=== PATIENT | female | born 1935 | race Caucasian/White ===

== ENCOUNTER 2016-12-03 12:48 | Outpatient (RCR) | payer MEDICARE ==
--- OUTSIDE RECORDS SUMMARY | 2016-11-26 12:51 | XMS REPORT | Continuity of Care Document ---
Author Author [facility] Organization [facility] Address Unknown Phone Unavailable Care Team Providers Care Insulation Hoseman Name Role Phone AppiahMartha reardon PCP [phone] Source Comments Some departments are not documenting in the electronic medical record. If you do not see the information that you expected, contact Release of Information in the Health Information Management department at [phone] for further assistance in locating additional records.[facility] Active Allergies and Adverse Reactions Allergen Noted Date Severity Reactions Comments Chocolate 02/02/2013 SEE COMMENTS Loses voice Sulfa (Sulfonamide 02/27/2013 ITCHING Antibiotics) Current Medications Prescription Sig. Disp. Refills Start End Date Status Date levothyroxine (SYNTHROID) Take 100 mcg by mouth Active 100 mcg tablet daily. aspirin EC 81 mg tablet Take 81 mg by mouth Active daily. losartan (COZAAR) 50 mg Take 50 mg by mouth Active tablet daily. loratadine (CLARITIN) 10 Take 10 mg by mouth daily Active mg tablet as needed. omeprazole DR(+) Take 20 mg by mouth daily Active (PRILOSEC) 20 mg capsule as needed. HYDROcodone/acetaminophen Take 1-2 Tabs by mouth 30 Tab 0 03/06/20 Active (NORCO; VICODIN) 5-325 mg every 6 hours as needed 13 tablet for Pain. senna/docusate Take 1 Tab by mouth twice 30 Tab 0 03/06/20 Active (SENOKOT-S) 8.6/50 mg daily. 13 tablet clotrimazole-betamethason Apply BID for 12 days 1 Container 1 Active e (LOTRISONE) 1-0.05 % 13 topical cream Ostomy Supplies Misc Use as directed and PRN 100 Each 5 03/29/20 Active 13 NAPROXEN SODIUM (ALEVE Take by mouth as Needed. Active PO) cholestyramine-sucrose Take 1 Scoop by mouth as Active (QUESTRAN) 4 gram powd Needed. powder FERROUS SULFATE PO Take by mouth daily. Active cholecalciferol (VITAMIN Take 1,000 Units by mouth Active D) 1,000 units tablet daily. Active Problems Problem Noted Date Rectal cancer (HCC) 02/27/2013 Social History Tobacco Use Types Packs/Day Years Used Date Never Smoker Smokeless Tobacco: Never Used Alcohol Use Drinks/Week oz/Week Comments No Last Filed Vital Signs Vital Sign Reading Time Taken Blood Pressure 176/88 08/20/2016 10:34 AM CDT Pulse 86 08/20/2016 10:34 AM CDT Temperature 36.7 C (98 F) 08/20/2016 10:34 AM CDT Respiratory Rate 18 08/20/2016 10:34 AM CDT Height 1.676 m (5' 5.98") 08/20/2016 10:34 AM CDT Weight 86.456 kg (190 lb 9.6 oz) 08/20/2016 10:34 AM CDT Body Mass Index 30.78 08/20/2016 10:34 AM CDT Oxygen Saturation 100% 08/20/2016 10:34 AM CDT Plan of Care Date Type Specialty Providers Description 02/11/2017 Appointment Oncology David Mccall DO [address] [place] [address] [phone] (Fax) Health Maintenance Due Date Last Done Comments Physical (Comprehensive) 1942 Exam Pertussis Vaccine 1944 Tetanus Vaccine 1950 Shingles Vaccine 1993 Osteoporosis Screening 1998 Prevnar/Pneumovax (#1) 1998 Influenza Vaccine 06/24/2016 Results from Last 3 Months Not on file
[2016-11-26 13:39] LABS: BASOPHILS % (AUTO) 1 % (0-10); EOSINOPHILS # (AUTO) 0.2 10^3/uL (0.0-0.3); EOSINOPHILS % (AUTO) 2 % (0-10); LYMPHOCYTES # (AUTO) 0.8 X 10^3 (1.0-4.0); LYMPHOCYTES % (AUTO) 13 % (12-44); MEAN CORPUSCULAR HEMOGLOBIN 28 PG (25-34); MEAN CORPUSCULAR HGB CONC 33 G/DL (32-36); MEAN CORPUSCULAR VOLUME 84 FL (80-99); MEAN PLATELET VOLUME 9.6 FL (7.4-10.4); MONOCYTES # (AUTO) 0.3 X 10^3 (0.0-1.0); MONOCYTES % (AUTO) 5 % (0-12); NEUTROPHILS # (AUTO) 4.9 X 10^3 (1.8-7.8); NEUTROPHILS % (AUTO) 79 % (42-75); PLATELET COUNT 335 10^3/uL (130-400); RED BLOOD COUNT 4.36 10^6/uL (4.35-5.85); WHITE BLOOD COUNT 6.2 10^3/uL (4.3-11.0)
[~2016-12-03 12:48] MED LIST: ASPI-983 PO; CEPH500C PO; CLOP75TA69 PO; FERRIC CARBOXYMALTOSE (CANCER) 750 MG in NS (IVPB) CANCER CENTER 250 ML IV SCH; HYDR1TAB PO; HYLANDS LEG CRAMPS; LOSA50TA36 PO; LVT.1T PO; MUPI1OIN5 NS; NAPR220C11 PO; OMEP-10 PO; SPIR1TAB3 PO
[2017-01-12] MEDS ORDERED: CEFU250T80 PO (15:22)
== END 2017-02-24 | disposition home or self-care (01) ==
LOC: ONC 12:48
PROVIDERS: ATTEND Internal Medicine Hematology & Oncology
DX: Z08 Encounter for follow-up examination after completed treatment for malignant neoplasm (principal); Z85.048 Personal history of other malignant neoplasm of rectum, rectosigmoid junction, and anus; D50.9 Iron deficiency anemia, unspecified; Z93.3 Colostomy status; Z92.21 Personal history of antineoplastic chemotherapy; Z92.3 Personal history of irradiation; Z90.49 Acquired absence of other specified parts of digestive tract; Z79.899 Other long term (current) drug therapy
CPT/HCPCS: 36415; 82728; 85025; 96365

== ENCOUNTER → 2017-01-04 | Outpatient (CLI) | payer MEDICARE ==
[~2017-01-04] MED LIST changes: +CEFU250T80 PO; -FERRIC CARBOXYMALTOSE (CANCER) 750 MG in NS (IVPB) CANCER CENTER 250 ML IV SCH
--- OUTSIDE RECORDS SUMMARY | 2017-01-04 11:21 | XMS REPORT | Continuity of Care Document ---
Author Author [facility] Organization [facility] Address Unknown Phone Unavailable Care Team Providers Care Legal Director Name Role Phone AppiahMartha reardon PCP [phone] Source Comments Some departments are not documenting in the electronic medical record. If you do not see the information that you expected, contact Release of Information in the Health Information Management department at [phone] for further assistance in locating additional records.[facility] Active Allergies and Adverse Reactions Allergen Noted [...] 02/11/2017 Appointment Oncology David Mccall DO [address] [place] [address] [phone] (Fax) Health Maintenance Due Date Last Done Comments Physical (Comprehensive) 1940 Exam Pertussis Vaccine 1944 Tetanus Vaccine 1950 Shingles Vaccine 1993 Osteoporosis Screening 1998 Prevnar/Pneumovax (#1) 1998 Influenza Vaccine 06/24/2016 Results from Last 3 Months Not on file
== END ==
LOC: FS 11:17
PROVIDERS: ATTEND Internal Medicine Hematology & Oncology
DX: Z08 Encounter for follow-up examination after completed treatment for malignant neoplasm (principal); Z85.048 Personal history of other malignant neoplasm of rectum, rectosigmoid junction, and anus; D50.9 Iron deficiency anemia, unspecified; Z93.3 Colostomy status; Z92.21 Personal history of antineoplastic chemotherapy; Z92.3 Personal history of irradiation; Z90.49 Acquired absence of other specified parts of digestive tract; Z79.899 Other long term (current) drug therapy
CPT/HCPCS: 99213

== ENCOUNTER 2017-01-12 14:05 | Emergency (ER) | payer MEDICARE ==
[~2017-01-12] VITALS: Ht 167.6 cm; Wt 85.3 kg
[~2017-01-12 14:05] MED LIST changes: -CEFU250T80 PO
[2017-01-12] MEDS ORDERED: ONDANSETRON 4 MG/2 ML (SDV) Z0FRAN IVP ONE (14:30)
--- NOTE | 2017-01-12 14:30 | ED General ---
General Chief Complaint: Dizziness/Syncope Stated Complaint: DIZZY Source of Information: Patient Exam Limitations: No Limitations History of Present Illness Time Seen by Provider: 14:27 Initial Comments To ER with reports of dizziness. Patient states that upon awakening this morning she got out of bed and became very dizzy and stumbled into the wall. She did not fall or injure herself. She then went and laid back down in bed and took a meclizine. She was seen at [facility] 2-3 weeks ago for similar episode of dizziness brought on by movement and was given a prescription for when necessary meclizine. So far she has had 2 meclizine tablets today and states that her dizziness is essentially gone back she states "I just feel washed out". She reports a little bit of nausea but states that she did not eat breakfast this morning. Her dizziness was worsened by movement. She had no other visual changes or neurologic complaints. She did have a CT of her head 2-3 weeks ago for Arcadio was told everything was normal. She was also seen here in an August and had a CT scan of her head for tingling in her hands. Timing/Duration: 4-6 Hours Severity: Moderate Associated Systoms: Malaise Allergies and Home Medications Allergies Coded Allergies: No Known Drug Allergies (Unverified , 12/13/11) Home Medications Aspirin 81 Mg Tablet.dr, 81 MG PO DAILY, (Reported) Clopidogrel Bisulfate 75 Mg Tablet, 75 MG PO DAILY, #10 Prescribed by: REID SHIRLEY on 09/15/161915 Levothyroxine Sodium 100 Mcg Tablet, 1 EACH PO DAILY, (Reported) Losartan Potassium 50 Mg Tablet, 75 MG PO DAILY, (Reported) Naproxen Sodium 220 Mg Capsule, 220 MG PO, (Reported) [hylands leg cramps] , (Reported) Constitutional: see HPI EENTM: see HPI Respiratory: no symptoms reported Cardiovascular: no symptoms reported Genitourinary: no symptoms reported Musculoskeletal: no symptoms reported Skin: no symptoms reported Psychiatric/Neurological: See HPI, Other (dizziness) Hematologic/Lymphatic: No Symptoms Reported Past Fuyqoiy-Bjkdgr-Lzracl Hx Patient Social History Recent Foreign Travel: No Contact w/Someone Who Travel: No Recent Hopitalizations: No Immunizations Up To Date Date of Influenza Vaccine: Aug 24, 2011 Seasonal Allergies Seasonal Allergies: No Surgeries HX Surgeries: Yes Surgeries: Abdominal, Bowel Surgery, Gallbladder, Hysterectomy, Oophorectomy, Orthopedic, Thyroidectomy Respiratory Hx Respiratory Disorders: No Cardiovascular Hx Cardiac Disorders: Yes Cardiac Disorders: Hypertension Neurological Hx Neurological Disorders: No Reproductive System Hx Reproductive Disorders: No COUNTER HOP History: Hysterectomy, Menopausal Genitourinary Hx Genitourinary Disorders: No Genitourinary Disorders: UTI-Chronic Gastrointestinal Hx Gastrointestinal Disorders: Yes (COLON CANCER--S/P RESECTION WITH COLOSTOMY) Musculoskeletal Hx Musculoskeletal Disorders: No Endocrine Hx Endocrine Disorders: Yes (THYROIDECTOMY FOR BENIGN THYROID NODULES) Endocrine Disorders: Hypothyroidsim HEENT HX ENT Disorders: No Cancer Hx Cancer: Yes Cancer: Rectal, Colon Psychosocial Hx Psychiatric Problems: No Integumentary HX Skin/Integumentary Disorder: No Blood Transfusions Hx Blood Disorders: No Physical Exam Vital Signs Vital Sign - Last 12Hours 01/12/17 14:25 Temp 97.9 Pulse 77 Resp 13 B/P (MAP) 164/84 Pulse Ox 98 Capillary Refill : General Appearance: No Apparent Distress, WD/WN Eyes: Bilateral Eye EOMI, Bilateral Eye Normal Inspection, Bilateral Eye PERRL HEENT: PERRL/EOMI, TMs Normal Neck: Full Range of Motion, Normal Inspection Respiratory: Normal Breath Sounds, No Accessory Muscle Use, No Respiratory Distress Cardiovascular: Regular Rate, Rhythm, No Edema, Normal Peripheral Pulses Gastrointestinal: Normal Bowel Sounds, Non Tender, Soft Extremity: Normal Capillary Refill, Normal Inspection Neurologic/Psychiatric: Alert, Oriented x3, No Motor/Sensory Deficits Skin: Normal Color, Warm/Dry Progress/Results/Core Measures Results/Orders Lab Results Laboratory Tests Test 01/12/17 14:20 01/12/17 14:47 Range/Units White Blood Count 6.1 4.3-11.0 10^3/uL Red Blood Count 4.75 4.35-5.85 10^6/uL Hemoglobin 14.3 11.5-16.0 G/DL Hematocrit 42 35-52 % Mean Corpuscular Volume 87 80-99 FL Mean Corpuscular Hemoglobin 30 25-34 PG Mean Corpuscular Hemoglobin Concent 35 32-36 G/DL Red Cell Distribution Width 15.7 H 10.0-14.5 % Platelet Count 280 130-400 10^3/uL Mean Platelet Volume 9.7 7.4-10.4 FL Neutrophils (%) (Auto) 76 H 42-75 % Lymphocytes (%) (Auto) 16 12-44 % Monocytes (%) (Auto) 5 0-12 % Eosinophils (%) (Auto) 3 0-10 % Basophils (%) (Auto) 1 0-10 % Neutrophils # (Auto) 4.6 1.8-7.8 X 10^3 Lymphocytes # (Auto) 1.0 1.0-4.0 X 10^3 Monocytes # (Auto) 0.3 0.0-1.0 X 10^3 Eosinophils # (Auto) 0.2 0.0-0.3 10^3/uL Basophils # (Auto) 0.1 0.0-0.1 10^3/uL Sodium Level 139 135-145 MMOL/L Potassium Level 3.7 3.6-5.0 MMOL/L Chloride Level 105 98-107 MMOL/L Carbon Dioxide Level 28 21-32 MMOL/L Anion Gap 6 5-14 MMOL/L Blood Urea Nitrogen 13 7-18 MG/DL Creatinine 0.86 0.60-1.30 MG/DL Estimat Glomerular Filtration Rate > 60 BUN/Creatinine Ratio 15 Glucose Level 117 H 70-105 MG/DL Calcium Level 8.9 8.5-10.1 MG/DL Total Bilirubin 0.3 0.1-1.0 MG/DL Aspartate Amino Transf (AST/SGOT) 12 5-34 U/L Alanine Aminotransferase (ALT/SGPT) 7 0-55 U/L Alkaline Phosphatase 103 40-136 U/L Troponin I < 0.30 <0.30 NG/ML Total Protein 6.0 L 6.4-8.2 G/DL Albumin 3.7 3.2-4.5 G/DL Urine Color YELLOW Urine Clarity CLEAR Urine pH 5 5-9 Urine Specific [place] 1.025 H 1.016-1.022 Urine Protein 1+ H NEGATIVE Urine Glucose (UA) NEGATIVE NEGATIVE Urine Ketones NEGATIVE NEGATIVE Urine Nitrite NEGATIVE NEGATIVE Urine Bilirubin 1+ H NEGATIVE Urine Urobilinogen 1 NORMAL MG/DL Urine Leukocyte Esterase 1+ H NEGATIVE Urine RBC (Auto) NEGATIVE NEGATIVE Urine RBC NONE /HPF Urine WBC 10-25 H /HPF Urine Squamous Epithelial Cells 2-5 /HPF Urine Crystals NONE /LPF Urine Bacteria TRACE /HPF Urine Casts NONE /LPF Urine Mucus LARGE H /LPF Urine Culture Indicated YES My Orders Orders - GLORIA COLON BUSINESS TECHNOLOGY PROFESSOR Cbc With Automated Diff (01/12/17 14:26) Comprehensive Metabolic Panel (01/12/17 14:26) Troponin I (01/12/17 14:26) Ekg Tracing (01/12/17 14:26) Saline Lock/Iv-Start (01/12/17 14:26) Ondansetron Injection (Zofran Injectio (01/12/17 14:30) Ua Culture If Indicated (01/12/17 14:39) Urine Culture (01/12/17 14:47) Medications Given in ED Current Medications Medications Dose Ordered Sig/Mary Route Start Time Stop Time Status Last Admin Dose Admin Ondansetron HCl 4 mg ONCE ONCE IVP 01/12/17 14:30 01/12/17 14:31 DC 01/12/17 14:37 4 MG Vital Signs/I&O Vital Sign - Last 12Hours 01/12/17 14:25 Temp 97.9 Pulse 77 Resp 13 B/P (MAP) 164/84 Pulse Ox 98 Departure Impression Impression: Primary Impression: Vertigo Additional Impression: Urinary tract infection Qualified Codes: N30.00 - Acute cystitis without hematuria Disposition: HOME, SELF-CARE Condition: Stable Departure-Patient Inst. Decision time for Depature: 15:21 Referrals: NO,LOCAL PHYSICIAN (PCP/Family) Primary Care Physician Patient Instructions: Urinary Tract Infection, Adult (DC), Vertigo (a Type of Dizziness) (DC) Add. Discharge Instructions: 1. Drink plenty of fluids 2. Change positions slowly 3. Follow-up with your doctor later this week 4. Take antibiotics as directed All discharge instructions reviewed with patient and/or family. Voiced understanding. Scripts Cefuroxime Axetil (Cefuroxime) 250 Mg Tablet 250 MG PO BID, #10 TAB Prov: GLORIA COLON BUSINESS TECHNOLOGY PROFESSOR 01/12/17 GLORIA COLON BUSINESS TECHNOLOGY PROFESSOR Jan 12, 2017 14:30
[2017-01-12 14:36] LABS: BASOPHILS # (AUTO) 0.1 10^3/uL (0.0-0.1); BASOPHILS % (AUTO) 1 % (0-10); EOSINOPHILS # (AUTO) 0.2 10^3/uL (0.0-0.3); EOSINOPHILS % (AUTO) 3 % (0-10); LYMPHOCYTES % (AUTO) 16 % (12-44); MEAN CORPUSCULAR HEMOGLOBIN 30 PG (25-34); MEAN CORPUSCULAR HGB CONC 35 G/DL (32-36); MEAN CORPUSCULAR VOLUME 87 FL (80-99); MEAN PLATELET VOLUME 9.7 FL (7.4-10.4); MONOCYTES # (AUTO) 0.3 X 10^3 (0.0-1.0); MONOCYTES % (AUTO) 5 % (0-12); NEUTROPHILS # (AUTO) 4.6 X 10^3 (1.8-7.8); NEUTROPHILS % (AUTO) 76 % (42-75); PLATELET COUNT 280 10^3/uL (130-400); RED BLOOD COUNT 4.75 10^6/uL (4.35-5.85); RED CELL DISTRIBUTION WIDTH 15.7 % (10.0-14.5); WHITE BLOOD COUNT 6.1 10^3/uL (4.3-11.0)
[2017-01-12 14:46] LABS: ALANINE AMINOTRANSFERASE 7 U/L (0-55); ALBUMIN 3.7 G/DL (3.2-4.5); ANION GAP 6 MMOL/L (5-14); ASPARTATE AMINO TRANSFERASE 12 U/L (5-34); BILIRUBIN,TOTAL 0.3 MG/DL (0.1-1.0); BLOOD UREA NITROGEN 13 MG/DL (7-18); BUN/CREATININE RATIO 15; CALCIUM 8.9 MG/DL (8.5-10.1); CARBON DIOXIDE 28 MMOL/L (21-32); CHLORIDE 105 MMOL/L (98-107); CREATININE SERUM 0.86 MG/DL (0.60-1.30); GFR ESTIMATED > 60; GLUCOSE 117 MG/DL (70-105); POTASSIUM 3.7 MMOL/L (3.6-5.0); SODIUM 139 MMOL/L (135-145)
[2017-01-12 14:52] LABS: TROPONIN I < 0.30 NG/ML (<0.30)
[2017-01-12 15:10] LABS: KETONES,URINE NEGATIVE (NEGATIVE); LEUKOCYTE ESTERASE ,URINE 1+ (NEGATIVE); NITRITE,URINE NEGATIVE (NEGATIVE); PH,URINE 5 (5-9); PROTEIN,URINE 1+ (NEGATIVE); UROBILINOGEN,URINE 1 MG/DL (NORMAL)
[2017-01-12 15:17] LABS: BILIRUBIN,URINE 1+ (NEGATIVE)
[2017-01-12] MEDS ORDERED: CEFU250T80 PO (15:22)
[2017-01-12] MEDS ORDERED: CEFDINIR 300 MG (OMNICEF) CAP PO ONE (15:30)
[2017-01-12 15:40] VITALS: BP 152/80
--- OUTSIDE RECORDS SUMMARY | 2017-01-16 05:08 | XMS REPORT | Continuity of Care Document ---
Author Author [facility] Organization [facility] Address Unknown Phone Unavailable Care Team Providers Care Medical Care Manager Name Role Phone AppiahMartha reardon PCP [phone] Source Comments Some departments are not documenting in the electronic medical record. If you do not see the information that you expected, contact Release of Information in the Health Information Management department at [phone] for further assistance in locating additional records.[facility] Active Allergies and Adverse Reactions Allergen [...] 08/20/2016 10:34 AM CDT Plan of Care Health Maintenance Due Date Last Done Comments Physical (Comprehensive) 1940 Exam Pertussis Vaccine 1944 Tetanus Vaccine 1950 Shingles Vaccine 1993 Osteoporosis Screening 1998 Prevnar/Pneumovax (#1) 1998 Influenza Vaccine 06/24/2017 Results from Last 3 Months Not on file
--- OUTSIDE RECORDS SUMMARY | 2017-01-16 05:09 | XMS REPORT | Continuity of Care Document ---
Author Author [facility] Organization [facility] Address Unknown Phone Unavailable Allergies Active Description Code Type Severity Reaction Onset Reported/Identified Relationship to Patient Clinical Status Yes No Known Drug Allergies [id number] Drug Allergy Unknown N/ A 12/13/2011 Medications Problems Date Dx Coded Attending Type Code Diagnosis Diagnosed By 09/18/2014 SCOT, BOBAN N Ot 280.9 09/18/2014 SCOT, BOBAN N Ot 569.69 09/18/2014 SCOT, BOBAN N Ot 789.09 09/18/2014 SCOT, BOBAN N Ot V10.06 09/18/2014 SCOT, BOBAN N Ot V44.3 09/18/2014 SCOT, BOBAN N Ot V58.69 09/18/2014 SCOT, BOBAN N Ot V67.1 09/18/2014 SCOT, BOBAN N Ot V67.2 09/30/2014 SCOT, BOBAN N Ot 280.9 09/30/2014 SCOT, BOBAN N Ot 569.69 09/30/2014 SCOT, BOBAN N Ot 789.09 09/30/2014 SCOT, BOBAN N Ot V10.06 09/30/2014 SCOT, BOBAN N Ot V44.3 09/30/2014 SCOT, BOBAN N Ot V58.69 09/30/2014 SCOT, BOBAN N Ot V67.1 09/30/2014 SCOT, BOBAN N Ot V67.2 10/31/2014 SCOT, BOBAN N Ot 280.9 10/31/2014 SCOT, BOBAN N Ot 569.69 10/31/2014 SCOT, BOBAN N Ot V10.06 10/31/2014 SCOT, BOBAN N Ot V44.3 10/31/2014 SCOT, BOBAN N Ot V58.69 10/31/2014 SCOT, BOBAN N Ot V67.1 10/31/2014 SCOT, BOBAN N Ot V67.2 11/18/2014 SCOT, BOBAN N Ot 280.9 11/18/2014 SCOT, BOBAN N Ot 569.69 11/18/2014 SCOT, BOBAN N Ot V10.06 11/18/2014 SCOT, BOBAN N Ot V44.3 11/18/2014 SCOT, BOBAN N Ot V58.69 11/18/2014 SCOT, BOBAN N Ot V67.1 11/18/2014 SCOT, BOBAN N Ot V67.2 11/25/2014 SCOT, BOBAN N Ot 280.9 11/25/2014 SCOT, BOBAN N Ot 569.69 11/25/2014 SCOT, BOBAN N Ot V10.06 11/25/2014 SCOT, BOBAN N Ot V44.3 11/25/2014 SCOT, BOBAN N Ot V58.69 11/25/2014 SCOT, BOBAN N Ot V67.1 11/25/2014 SCOT, BOBAN N Ot V67.2 02/04/2015 SCOT, BOBAN N Ot 280.9 02/04/2015 SCOT, BOBAN N Ot 569.69 02/04/2015 SCOT, BOBAN N Ot V10.06 02/04/2015 SCOT, BOBAN N Ot V44.3 02/04/2015 SCOT, BOBAN N Ot V58.69 02/04/2015 SCOT, BOBAN N Ot V67.1 02/04/2015 SCOT, BOBAN N Ot V67.2 02/04/2015 SCOT, BOBAN N Ot 280.9 02/04/2015 SCOT, BOBAN N Ot 569.69 02/04/2015 SCOT, BOBAN N Ot V10.06 02/04/2015 SCOT, BOBAN N Ot V44.3 02/04/2015 SCOT, BOBAN N Ot V58.69 02/04/2015 SCOT, BOBAN N Ot V67.1 02/04/2015 SCOT, BOBAN N Ot V67.2 02/11/2015 SCOT, BOBAN N Ot 280.9 02/11/2015 SCOT, BOBAN N Ot 569.69 02/11/2015 SCOT, BOBAN N Ot V10.06 02/11/2015 SCOT, BOBAN N Ot V44.3 02/11/2015 SCOT, BOBAN N Ot V58.69 02/11/2015 SCOT, BOBAN N Ot V67.1 02/11/2015 SCOT, BOBAN N Ot V67.2 02/12/2015 SCOT, BOBAN N Ot 280.9 02/12/2015 SCOT, BOBAN N Ot 569.69 02/12/2015 SCOT, BOBAN N Ot V10.06 02/12/2015 SCOT, BOBAN N Ot V44.3 02/12/2015 SCOT, BOBAN N Ot V58.69 02/12/2015 SCOT, BOBAN N Ot V67.1 02/12/2015 SCOT, BOBAN N Ot V67.2 03/22/2015 SCOT, BOBAN N Ot 280.9 03/22/2015 SCOT, BOBAN N Ot 569.69 03/22/2015 SCOT, BOBAN N Ot V10.06 03/22/2015 SCOT, BOBAN N Ot V44.3 03/22/2015 SCOT, BOBAN N Ot V58.69 03/22/2015 SCOT, BOBAN N Ot V67.1 03/22/2015 SCOT, BOBAN N Ot V67.2 04/10/2015 SCOT, BOBAN N Ot 280.9 04/10/2015 SCOT, BOBAN N Ot 569.69 04/10/2015 SCOT, BOBAN N Ot V10.06 04/10/2015 SCOT, BOBAN N Ot V44.3 04/10/2015 SCOT, BOBAN N Ot V58.69 04/10/2015 SCOT, BOBAN N Ot V67.1 04/10/2015 SCOT, BOBAN N Ot V67.2 05/02/2015 SCOT, BOBAN N Ot 280.9 05/02/2015 SCOT, BOBAN N Ot 569.69 05/02/2015 SCOT, BOBAN N Ot V10.06 05/02/2015 SCOT, BOBAN N Ot V44.3 05/02/2015 SCOT, BOBAN N Ot V58.69 05/02/2015 SCOT, BOBAN N Ot V67.1 05/02/2015 SCOT, BOBAN N Ot V67.2 05/12/2015 SCOT, BOBAN N Ot 280.9 05/12/2015 SCOT, BOBAN N Ot 569.69 05/12/2015 SCOT, BOBAN N Ot V10.06 05/12/2015 SCOT, BOBAN N Ot V44.3 05/12/2015 SCOT, BOBAN N Ot V58.69 05/12/2015 SCOT, BOBAN N Ot V67.1 05/12/2015 SCOT, BOBAN N Ot V67.2 05/14/2015 SCOT, BOBAN N Ot 154.1 05/22/2015 SCOT, BOBAN N Ot 154.1 06/04/2015 SCOT, BOBAN N Ot 280.9 06/04/2015 SCOT, BOBAN N Ot 569.69 06/04/2015 SCOT, BOBAN N Ot V10.06 06/04/2015 SCOT, BOBAN N Ot V44.3 06/04/2015 SCOT, BOBAN N Ot V58.69 06/04/2015 SCOT, BOBAN N Ot V67.1 06/04/2015 SCOT, BOBAN N Ot V67.2 06/11/2015 SCOT, BOBAN N Ot 280.9 06/11/2015 SCOT, BOBAN N Ot 569.69 06/11/2015 SCOT, BOBAN N Ot V10.06 06/11/2015 SCOT, BOBAN N Ot V44.3 06/11/2015 SCOT, BOBAN N Ot V58.69 06/11/2015 SCOT, BOBAN N Ot V67.1 06/11/2015 SCOT, BOBAN N Ot V67.2 06/18/2015 SCOT, BOBAN N Ot 280.9 06/18/2015 SCOT, BOBAN N Ot 569.69 06/18/2015 SCOT, BOBAN N Ot V10.06 06/18/2015 SCOT, BOBAN N Ot V44.3 06/18/2015 SCOT, BOBAN N Ot V58.69 06/18/2015 SCOT, BOBAN N Ot V67.1 06/18/2015 SCOT, BOBAN N Ot V67.2 07/23/2015 SCOT, BOBAN N Ot 280.9 07/23/2015 SCOT, BOBAN N Ot 569.69 07/23/2015 SCOT, BOBAN N Ot V10.06 07/23/2015 SCOT, BOBAN N Ot V44.3 07/23/2015 SCOT, BOBAN N Ot V58.69 07/23/2015 SCOT, BOBAN N Ot V67.1 07/23/2015 SCOT, BOBAN N Ot V67.2 10/14/2015 SCOT, BOBAN N Ot D50.9 10/14/2015 SCOT, BOBAN N Ot K43.5 10/14/2015 SCOT, BOBAN N Ot Z08 10/14/2015 SCOT, BOBAN N Ot Z85.048 10/14/2015 SCOT, BOBAN N Ot Z90.49 10/14/2015 SCOT, BOBAN N Ot Z92.21 10/14/2015 SCOT, BOBAN N Ot Z92.3 10/14/2015 SCOT, BOBAN N Ot Z93.3 10/15/2015 SCOT, BOBAN N Ot D50.9 10/15/2015 SCOT, BOBAN N Ot K43.5 10/15/2015 SCOT, BOBAN N Ot Z08 10/15/2015 SCOT, BOBAN N Ot Z85.048 10/15/2015 SCOT, BOBAN N Ot Z90.49 10/15/2015 SCOT, BOBAN N Ot Z92.21 10/15/2015 SCOT, BOBAN N Ot Z92.3 10/15/2015 SCOT, BOBAN N Ot Z93.3 12/04/2015 SCOT, BOBAN N Ot D50.9 12/11/2015 SCOT, BOBAN N Ot D50.9 12/15/2015 SCOT, BOBAN N Ot D50.9 12/22/2015 SCOT, BOBAN N Ot D50.9 12/22/2015 SCOT, BOBAN N Ot D50.9 12/25/2015 SCOT, BOBAN N Ot D50.9 01/07/2016 SCOT, BOBAN N Ot D50.9 03/09/2016 SCOT, BOBAN N Ot D50.9 IRON DEFICIENCY ANEMIA, UNSPECIFIED 03/19/2016 SCOT, BOBAN N Ot D50.9 IRON DEFICIENCY ANEMIA, UNSPECIFIED 03/19/2016 SCOT, BOBAN N Ot Z79.899 OTHER FDC (CURRENT) DRUG THERAPY 03/19/2016 SCOT RENETTAAN N Ot D50.9 IRON DEFICIENCY ANEMIA, UNSPECIFIED 03/19/2016 SCOT, BOBAN N Ot Z08 ENCNTR FOR FOLLOW-UP EXAM AFTER TRTMT FO 03/19/2016 SCOTRENETTAAN N Ot 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 03/19/2016 SCOT RENETTAAN N Ot 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, RECT 03/19/2016 SCOT, BOBAN N Ot Z90.49 ACQUIRED ABSENCE OF OTHER SPECIFIED PART 03/19/2016 SCOT BOBAN N Ot Z92.21 PERSONAL HISTORY OF ANTINEOPLASTIC CHEMO 03/19/2016 SCOTRENETTAAN N Ot Z92.3 PERSONAL HISTORY OF IRRADIATION 03/19/2016 SCOT BOBAN N Ot Z93.3 COLOSTOMY STATUS 04/12/2016 SCOTRENETTAAN N Ot D50.9 IRON DEFICIENCY ANEMIA, UNSPECIFIED 04/12/2016 SCOT BOBAN N Ot Z08 ENCNTR FOR FOLLOW-UP EXAM AFTER TRTMT FO 04/12/2016 SCOT, BOBAN N Ot Z79.899 OTHER FDC (CURRENT) DRUG THERAPY 04/12/2016 SCOT RENETTAJULIUS N Ot 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, RECT 04/12/2016 SCOT, BOBAN N Ot Z90.49 ACQUIRED ABSENCE OF OTHER SPECIFIED PART 04/12/2016 SCOT, BOBAN N Ot Z92.21 PERSONAL HISTORY OF ANTINEOPLASTIC CHEMO 04/12/2016 SCOT, BOBAN N Ot Z92.3 PERSONAL HISTORY OF IRRADIATION 04/12/2016 SCOT, BOBAN N Ot Z93.3 COLOSTOMY STATUS 04/14/2016 SCOT, BOBAN N Ot D50.9 IRON DEFICIENCY ANEMIA, UNSPECIFIED 04/14/2016 SCOT, BOBAN N Ot Z79.899 OTHER FDC (CURRENT) DRUG THERAPY 04/17/2016 SCOT, BOBAN N Ot D50.9 IRON DEFICIENCY ANEMIA, UNSPECIFIED 04/17/2016 SCOT, BOBAN N Ot Z08 ENCNTR FOR FOLLOW-UP EXAM AFTER TRTMT FO 04/17/2016 SCOT BOBAN N Ot 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 04/17/2016 SYBIL ELLISON N Ot 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, RECT 04/17/2016 SYBIL ELLISON N Ot Z90.49 ACQUIRED ABSENCE OF OTHER SPECIFIED PART 04/17/2016 SYBIL ELLISON N Ot Z92.21 PERSONAL HISTORY OF ANTINEOPLASTIC CHEMO 04/17/2016 SYBIL ELLISON N Ot Z92.3 PERSONAL HISTORY OF IRRADIATION 04/17/2016 SYBIL ELLISON N Ot Z93.3 COLOSTOMY STATUS 04/22/2016 SYBIL ELLISON N Ot D50.9 IRON DEFICIENCY ANEMIA, UNSPECIFIED 04/22/2016 SCOTSYBIL ESCOBAR N Ot Z08 ENCNTR FOR FOLLOW-UP EXAM AFTER TRTMT FO 04/22/2016 SYBIL ELLISON N Ot 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 04/22/2016 SCOTSYBIL ESCOBAR N Ot 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, RECT 04/22/2016 SCOTSYBIL N Ot Z90.49 ACQUIRED ABSENCE OF OTHER SPECIFIED PART 04/22/2016 SCOTSYBIL N Ot Z92.21 PERSONAL HISTORY OF ANTINEOPLASTIC CHEMO 04/22/2016 SCOTSYBIL ESCOBAR N Ot Z92.3 PERSONAL HISTORY OF IRRADIATION 04/22/2016 SYBIL ELLISON N Ot Z93.3 COLOSTOMY STATUS 04/29/2016 SYBIL ELLISON N Ot D50.9 IRON DEFICIENCY ANEMIA, UNSPECIFIED 04/29/2016 SYBIL ELLISON N Ot Z08 ENCNTR FOR FOLLOW-UP EXAM AFTER TRTMT FO 04/29/2016 SYBIL ELLISON N Ot 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 04/29/2016 SCOTSYBIL N Ot 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, RECT 04/29/2016 SCOT BOBAN N Ot Z90.49 ACQUIRED ABSENCE OF OTHER SPECIFIED PART 04/29/2016 SCOT BOBAN N Ot Z92.21 PERSONAL HISTORY OF ANTINEOPLASTIC CHEMO 04/29/2016 SCOTSYBIL ESCOBAR N Ot Z92.3 PERSONAL HISTORY OF IRRADIATION 04/29/2016 SCOTSYBIL ESCOBAR N Ot Z93.3 COLOSTOMY STATUS 06/16/2016 SCOTSYBIL ESCOBAR N Ot D50.9 IRON DEFICIENCY ANEMIA, UNSPECIFIED 06/16/2016 SCOTSYBIL N Ot Z79.899 OTHER FDC (CURRENT) DRUG THERAPY 06/17/2016 SCOTSYBIL ESCOBAR N Ot D50.9 IRON DEFICIENCY ANEMIA, UNSPECIFIED 06/17/2016 SCOTSYBIL N Ot Z79.899 OTHER FDC (CURRENT) DRUG THERAPY 06/21/2016 SCOTSYBIL ESCOBAR N Ot D50.9 IRON DEFICIENCY ANEMIA, UNSPECIFIED 06/21/2016 SCOTSYBIL N Ot Z08 ENCNTR FOR FOLLOW-UP EXAM AFTER TRTMT FO 06/21/2016 SCOTSYBIL ESCOBAR N Ot Z79.899 OTHER FDC (CURRENT) DRUG THERAPY 06/21/2016 SCOTSYBIL ESCOBAR N Ot 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, RECT 06/21/2016 SCOT, RENETTAJULIUS N Ot Z90.49 ACQUIRED ABSENCE OF OTHER SPECIFIED PART 06/21/2016 SCOTRENETTAJULIUS N Ot Z92.21 PERSONAL HISTORY OF ANTINEOPLASTIC CHEMO 06/21/2016 SCOT SYBIL N Ot Z92.3 PERSONAL HISTORY OF IRRADIATION 06/21/2016 SYBIL ELLISON N Ot Z93.3 COLOSTOMY STATUS 06/22/2016 SYBIL ELLISON N Ot D50.9 IRON DEFICIENCY ANEMIA, UNSPECIFIED 06/22/2016 SCOTSYBIL N Ot 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 06/24/2016 OMID HERNÁNDEZ [employer] MA[employer] Ot 154.1 MALIGNANT NEOPL RECTUM 06/24/2016 OMID HERNÁNDEZ [employer] MA[employer] Ot 780.4 DIZZINESS AND GIDDINESS 06/24/2016 OMDI HERNÁNDEZ [employer] MAIL [employer] Ot 780.79 OTH MALAISE FATIGUE 06/24/2016 SCOTSYBIL ESCOBAR N Ot D50.9 IRON DEFICIENCY ANEMIA, UNSPECIFIED 06/24/2016 SCOT, RENETTAJULIUS N Ot Z08 ENCNTR FOR FOLLOW-UP EXAM AFTER TRTMT FO 06/24/2016 SYBIL ELLISON N Ot 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 06/24/2016 SCOT SYBIL N Ot 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, RECT 06/24/2016 SCOTSYBIL ESCOBAR N Ot Z90.49 ACQUIRED ABSENCE OF OTHER SPECIFIED PART 06/24/2016 SCOTSYBIL ESCOBAR N Ot Z92.21 PERSONAL HISTORY OF ANTINEOPLASTIC CHEMO 06/24/2016 SCOT, SYBIL N Ot Z92.3 PERSONAL HISTORY OF IRRADIATION 06/24/2016 SCOT RENETTAJULIUS N Ot Z93.3 COLOSTOMY STATUS 07/14/2016 SCOT SYBIL N Ot D50.9 IRON DEFICIENCY ANEMIA, UNSPECIFIED 07/14/2016 SCOT, RENETTAJULIUS N Ot Z08 ENCNTR FOR FOLLOW-UP EXAM AFTER TRTMT FO 07/14/2016 SYBIL ELLISON N Ot Z79.899 OTHER FDC (CURRENT) DRUG THERAPY 07/14/2016 SCOT, RENETTAJULIUS N Ot 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, RECT 07/14/2016 SCOTSYBIL N Ot Z90.49 ACQUIRED ABSENCE OF OTHER SPECIFIED PART 07/14/2016 SCOTSYBIL N Ot Z92.21 PERSONAL HISTORY OF ANTINEOPLASTIC CHEMO 07/14/2016 SCOTSYBIL N Ot Z92.3 PERSONAL HISTORY OF IRRADIATION 07/14/2016 SCOTRENETTAJULIUS N Ot Z93.3 COLOSTOMY STATUS 07/21/2016 SCOTRENETTAJULIUS N Ot D50.9 IRON DEFICIENCY ANEMIA, UNSPECIFIED 07/21/2016 SCOTRENETTAJULIUS N Ot Z08 ENCNTR FOR FOLLOW-UP EXAM AFTER TRTMT FO 07/21/2016 SYBIL ELLISON N Ot 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 07/21/2016 SCOT, RENETTAJULIUS N Ot 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, RECT 07/21/2016 SCOTSYBIL N Ot Z90.49 ACQUIRED ABSENCE OF OTHER SPECIFIED PART 07/21/2016 SCOTRENETTAJULIUS N Ot Z92.21 PERSONAL HISTORY OF ANTINEOPLASTIC CHEMO 07/21/2016 SCOTSYBIL N Ot Z92.3 PERSONAL HISTORY OF IRRADIATION 07/21/2016 SCOTSYBIL N Ot Z93.3 COLOSTOMY STATUS 09/14/2016 SCOT, RENETTAJULIUS N Ot D50.9 IRON DEFICIENCY ANEMIA, UNSPECIFIED 09/14/2016 SCOTSYBIL N Ot Z08 ENCNTR FOR FOLLOW-UP EXAM AFTER TRTMT FO 09/14/2016 SYBIL ELLISON Rosanna Ot Z79.899 OTHER FDC (CURRENT) DRUG THERAPY 09/14/2016 SYBIL ELLISON Rosanna Ot 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, RECT 09/14/2016 SYBIL ELLISON Rosanna Ot Z90.49 ACQUIRED ABSENCE OF OTHER SPECIFIED PART 09/14/2016 SYBIL ELLISON Rosanna Ot Z92.21 PERSONAL HISTORY OF ANTINEOPLASTIC CHEMO 09/14/2016 SYBIL ELLISON Rosanna Ot Z92.3 PERSONAL HISTORY OF IRRADIATION 09/14/2016 SYBIL ELLISON Rosanna Ot Z93.3 COLOSTOMY STATUS 09/14/2016 SYBIL ELLISON Rosanna Ot D50.9 IRON DEFICIENCY ANEMIA, UNSPECIFIED 09/14/2016 SYBIL ELLIOSN Rosanna Ot Z08 ENCNTR FOR FOLLOW-UP EXAM AFTER TRTMT FO 09/14/2016 SYBIL ELLISON Rosanna Ot 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 09/14/2016 SYBIL ELLISON Rosanna Ot 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, RECT 09/14/2016 SYBIL ELLISON Rosanna Ot Z90.49 ACQUIRED ABSENCE OF OTHER SPECIFIED PART 09/14/2016 SYBIL ELLISON Rosanna Ot Z92.21 PERSONAL HISTORY OF ANTINEOPLASTIC CHEMO 09/14/2016 SYBIL ELLISON Rosanna Ot Z92.3 PERSONAL HISTORY OF IRRADIATION 09/14/2016 SYBIL ELLISON Rosanna Ot Z93.3 COLOSTOMY STATUS 09/15/2016 REID SHIRLEY DO Ot E03.9 HYPOTHYROIDISM, UNSPECIFIED 09/15/2016 REID SHIRLEY DO Ot I10 ESSENTIAL (PRIMARY) HYPERTENSION 09/15/2016 REID SHIRELY DO Ot R20.2 PARESTHESIA OF SKIN 09/15/2016 REID SHIRLEY DO Ot Z79.82 FDC (CURRENT) USE OF ASPIRIN 09/15/2016 REID SHIRLEY DO Ot 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 09/15/2016 REID SHIRLEY DO Ot Z85.038 PERSONAL HISTORY OF MALIGNANT NEOPLASM O 09/15/2016 REID SHIRLEY DO Ot Z93.3 COLOSTOMY STATUS 09/17/2016 REID SHIRLEY DO Ot E03.9 HYPOTHYROIDISM, UNSPECIFIED 09/17/2016 CASPER MADSEN REID K Ot I10 ESSENTIAL (PRIMARY) HYPERTENSION 09/17/2016 CASPER MADSEN REID K Ot R20.2 PARESTHESIA OF SKIN 09/17/2016 CASPER MADSENALEXSANDRAA K Ot Z79.82 FDC (CURRENT) USE OF ASPIRIN 09/17/2016 CASPER MADSEN REID K Ot 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 09/17/2016 CASPER MADSEN REID K Ot Z85.038 PERSONAL HISTORY OF MALIGNANT NEOPLASM O 09/17/2016 CASPER MADSEN REID Joaquín Ot Z93.3 COLOSTOMY STATUS 09/22/2016 SYBIL ELLISON Ot D50.9 IRON DEFICIENCY ANEMIA, UNSPECIFIED 09/22/2016 SYBIL ELLISON Ot Z08 ENCNTR FOR FOLLOW-UP EXAM AFTER TRTMT FO 09/22/2016 SYBIL ELLISON Ot 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 09/22/2016 SYBIL ELLISON Ot 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, RECT 09/22/2016 SYBIL ELLISON Ot Z90.49 ACQUIRED ABSENCE OF OTHER SPECIFIED PART 09/22/2016 SYBIL ELLISON Ot Z92.21 PERSONAL HISTORY OF ANTINEOPLASTIC CHEMO 09/22/2016 SYBIL ELLISON Ot Z92.3 PERSONAL HISTORY OF IRRADIATION 09/22/2016 SYBIL ELLISON Ot Z93.3 COLOSTOMY STATUS 09/23/2016 CASPER MADSEN REID Joaquín Ot E03.9 HYPOTHYROIDISM, UNSPECIFIED 09/23/2016 CASPER MADSENALEXSANDRAA K Ot I10 ESSENTIAL (PRIMARY) HYPERTENSION 09/23/2016 CASPER MADSEN REID K Ot R20.2 PARESTHESIA OF SKIN 09/23/2016 CASPER MADSEN REID K Ot Z79.82 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 09/23/2016 CASPER ALEXSANDRAA K Ot Z79.899 OTHER [facility]DC (CURRENT) DRUG THERAPY 09/23/2016 CASPER MADSEN REID K Ot Z85.038 PERSONAL HISTORY OF MALIGNANT NEOPLASM O 09/23/2016 CASPER MADSEN REID K Ot Z93.3 COLOSTOMY STATUS 10/12/2016 SYBIL ELLISON Ot D50.9 IRON DEFICIENCY ANEMIA, UNSPECIFIED 10/12/2016 SYBIL ELLISON N Ot Z08 ENCNTR FOR FOLLOW-UP EXAM AFTER TRTMT FO 10/12/2016 SYBIL ELLISON N Ot Z79.899 OTHER FDC (CURRENT) DRUG THERAPY 10/12/2016 SYBIL ELLISON N Ot 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, RECT 10/12/2016 SYBIL ELLISON N Ot Z90.49 ACQUIRED ABSENCE OF OTHER SPECIFIED PART 10/12/2016 SYBIL ELLISON N Ot Z92.21 PERSONAL HISTORY OF ANTINEOPLASTIC CHEMO 10/12/2016 SYBIL ELLISON N Ot Z92.3 PERSONAL HISTORY OF IRRADIATION 10/12/2016 RENETTA ELLISONAN N Ot Z93.3 COLOSTOMY STATUS 10/20/2016 SYBIL ELLISON N Ot D50.9 IRON DEFICIENCY ANEMIA, UNSPECIFIED 10/20/2016 SYBIL ELLISON N Ot Z08 ENCNTR FOR FOLLOW-UP EXAM AFTER TRTMT FO 10/20/2016 SYBIL ELLISON N Ot Z79.899 OTHER FDC (CURRENT) DRUG THERAPY 10/20/2016 SYBIL ELLISON N Ot 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, RECT 10/20/2016 SCOTSYBIL ESCOBAR N Ot Z90.49 ACQUIRED ABSENCE OF OTHER SPECIFIED PART 10/20/2016 SYBIL ELLISON N Ot Z92.21 PERSONAL HISTORY OF ANTINEOPLASTIC CHEMO 10/20/2016 SYBIL ELLISON N Ot Z92.3 PERSONAL HISTORY OF IRRADIATION 10/20/2016 SYBIL ELLISON N Ot Z93.3 COLOSTOMY STATUS 01/06/2017 SYBIL ELLISON N Ot D50.9 IRON DEFICIENCY ANEMIA, UNSPECIFIED 01/06/2017 SYBIL ELLISON N Ot Z08 ENCNTR FOR FOLLOW-UP EXAM AFTER TRTMT FO 01/06/2017 RENETTA ELLISONAN N Ot 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 01/06/2017 SCOTSYBIL N Ot 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, RECT 01/06/2017 SCOTRENETTAAN N Ot Z90.49 ACQUIRED ABSENCE OF OTHER SPECIFIED PART 01/06/2017 SCOT BOBAN N Ot 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.21 PERSONAL HISTORY OF ANTINEOPLASTIC CHEMO 01/06/2017 SYBIL ELLISON Ot Z92.3 PERSONAL HISTORY OF IRRADIATION 01/06/2017 SYBIL ELLISON Ot Z93.3 COLOSTOMY STATUS Procedures Results Test Result Range Complete blood count (CBC) with automated white blood cell (WBC) differential - 09/15/16 18:21 Blood leukocytes automated count (number/volume) 11.3 10*3/ uL 4.3-11.0 Blood erythrocytes automated count (number/volume) 4.49 10*6 /uL 4.35-5.85 Venous blood hemoglobin measurement (mass/volume) 13.5 g/dL 11.5-16.0 Blood hematocrit (volume fraction) 39 % 35-52 Automated erythrocyte mean corpuscular volume 87 [foz_us] 80-99 Automated erythrocyte mean corpuscular hemoglobin (mass per erythrocyte) 30 pg 25-34 Automated erythrocyte mean corpuscular hemoglobin concentration measurement ( mass/volume) 34 g/dL 32-36 Automated erythrocyte distribution width ratio 13.2 % 10.0-14.5 Automated blood platelet count (count/volume) 323 10*3/uL 130-400 Automated blood platelet mean volume measurement 9.5 [foz_us ] 7.4-10.4 Automated blood neutrophils/100 leukocytes 83 % 42-75 Automated blood lymphocytes/100 leukocytes 11 % 12-44 Blood monocytes/100 leukocytes 6 % 0-12 Automated blood eosinophils/100 leukocytes 1 % 0-10 Automated blood basophils/100 leukocytes 0 % 0-10 Blood neutrophils automated count (number/volume) 9.4 10*3 1.8-7.8 Blood lymphocytes automated count (number/volume) 1.2 10*3 1.0-4.0 Blood monocytes automated count (number/volume) 0.6 10*3 0.0-1.0 Automated eosinophil count 0.1 10*3/uL 0.0-0.3 Automated blood basophil count (count/volume) 0.1 10*3/uL 0.0-0.1 PT panel in platelet poor plasma by coagulation assay - 09/15/16 18:21 Prothrombin time (PT) in platelet poor plasma by coagulation assay 13.5 s 12.2-14.7 INR in platelet poor plasma or blood by coagulation assay 1.1 0.8-1.4 Activated partial thromboplastin time (aPTT) in platelet poor plasma bycoagulation assay - 09/15/16 18:21 Activated partial thromboplastin time (aPTT) in platelet poor plasma bycoagulation assay 29 s 24-35 Comprehensive metabolic panel - 09/15/16 18:21 Serum or plasma sodium measurement (moles/volume) 134 mmol/ L 135-145 Serum or plasma potassium measurement (moles/volume) 4.1 mmol/L 3.6-5.0 Serum or plasma chloride measurement (moles/volume) 101 mmol /L 98-107 Carbon dioxide 23 mmol/L 21-32 Serum or plasma anion gap determination (moles/volume) 10 mmol/L 5-14 Serum or plasma urea nitrogen measurement (mass/volume) 17 mg/dL 7-18 Serum or plasma creatinine measurement (mass/volume) 0.90 mg /dL 0.60-1.30 Serum or plasma urea nitrogen/creatinine mass ratio 19 NRG Serum or plasma creatinine measurement with calculation of estimated glomerular filtration rate 60 NRG Serum or plasma glucose measurement (mass/volume) 118 mg/dL 70-105 Serum or plasma calcium measurement (mass/volume) 9.5 mg/dL 8.5-10.1 Serum or plasma total bilirubin measurement (mass/volume) 0.3 mg/dL 0.1-1.0 Serum or plasma alkaline phosphatase measurement (enzymatic activity/volume) 94 U/L 40-136 Serum or plasma aspartate aminotransferase measurement (enzymatic activity/ volume) 12 U/L 5-34 Serum or plasma alanine aminotransferase measurement (enzymatic activity/volume ) 8 U/L 0-55 Serum or plasma protein measurement (mass/volume) 6.4 g/dL 6.4-8.2 Serum or plasma albumin measurement (mass/volume) 4.0 g/dL 3.2-4.5 Magnesium - 09/15/16 18:21 Magnesium 2.1 mg/dL 1.8-2.4 Serum or plasma troponin i.cardiac measurement (mass/volume) - 09/15/16 18:21 Serum or plasma troponin i.cardiac measurement (mass/volume) < ng/mL <0.30 Myoglobin, serum - 09/15/16 18:21 Myoglobin, serum 44.8 ng/mL 10.0-92.0 Complete blood count (CBC) with automated white blood cell (WBC) differential - 01/12/17 14:20 Blood leukocytes automated count (number/volume) 6.1 10*3/ uL 4.3-11.0 Blood erythrocytes automated count (number/volume) 4.75 10*6 /uL 4.35-5.85 Venous blood hemoglobin measurement (mass/volume) 14.3 g/dL 11.5-16.0 Blood hematocrit (volume fraction) 42 % 35-52 Automated erythrocyte mean corpuscular volume 87 [foz_us] 80-99 Automated erythrocyte mean corpuscular hemoglobin (mass per erythrocyte) 30 pg 25-34 Automated erythrocyte mean corpuscular hemoglobin concentration measurement ( mass/volume) 35 g/dL 32-36 Automated erythrocyte distribution width ratio 15.7 % 10.0-14.5 Automated blood platelet count (count/volume) 280 10*3/uL 130-400 Automated blood platelet mean volume measurement 9.7 [foz_us ] 7.4-10.4 Automated blood neutrophils/100 leukocytes 76 % 42-75 Automated blood lymphocytes/100 leukocytes 16 % 12-44 Blood monocytes/100 leukocytes 5 % 0-12 Automated blood eosinophils/100 leukocytes 3 % 0-10 Automated blood basophils/100 leukocytes 1 % 0-10 Blood neutrophils automated count (number/volume) 4.6 10*3 1.8-7.8 Blood lymphocytes automated count (number/volume) 1.0 10*3 1.0-4.0 Blood monocytes automated count (number/volume) 0.3 10*3 0.0-1.0 Automated eosinophil count 0.2 10*3/uL 0.0-0.3 Automated blood basophil count (count/volume) 0.1 10*3/uL 0.0-0.1 Comprehensive metabolic panel - 01/12/17 14:20 Serum or plasma sodium measurement (moles/volume) 139 mmol/ L 135-145 Serum or plasma potassium measurement (moles/volume) 3.7 mmol/L 3.6-5.0 Serum or plasma chloride measurement (moles/volume) 105 mmol /L 98-107 Carbon dioxide 28 mmol/L 21-32 Serum or plasma anion gap determination (moles/volume) 6 mmol/L 5-14 Serum or plasma urea nitrogen measurement (mass/volume) 13 mg/dL 7-18 Serum or plasma creatinine measurement (mass/volume) 0.86 mg /dL 0.60-1.30 Serum or plasma urea nitrogen/creatinine mass ratio 15 NRG Serum or plasma creatinine measurement with calculation of estimated glomerular filtration rate > NRG Serum or plasma glucose measurement (mass/volume) 117 mg/dL 70-105 Serum or plasma calcium measurement (mass/volume) 8.9 mg/dL 8.5-10.1 Serum or plasma total bilirubin measurement (mass/volume) 0.3 mg/dL 0.1-1.0 Serum or plasma alkaline phosphatase measurement (enzymatic activity/volume) 103 U/L 40-136 Serum or plasma aspartate aminotransferase measurement (enzymatic activity/ volume) 12 U/L 5-34 Serum or plasma alanine aminotransferase measurement (enzymatic activity/volume ) 7 U/L 0-55 Serum or plasma protein measurement (mass/volume) 6.0 g/dL 6.4-8.2 Serum or plasma albumin measurement (mass/volume) 3.7 g/dL 3.2-4.5 Serum or plasma troponin i.cardiac measurement (mass/volume) - 01/12/17 14:20 Serum or plasma troponin i.cardiac measurement (mass/volume) < ng/mL <0.30 Complete urinalysis with reflex to culture - 01/12/17 14:47 Urine color determination YELLOW NRG Urine clarity determination CLEAR NRG Urine pH measurement by test strip 5 5- 9 Specific gravity of urine by test strip 1.025 1.016-1.022 Urine protein assay by test strip, semi-quantitative 1+ NEGATIVE Urine glucose detection by automated test strip NEGATIVE NEGATIVE Erythrocytes detection in urine sediment by light microscopy NEGATIVE NEGATIVE Urine ketones detection by automated test strip NEGATIVE NEGATIVE Urine nitrite detection by test strip NEGATIVE NEGATIVE Urine total bilirubin detection by test strip 1+ NEGATIVE Urine urobilinogen measurement by automated test strip (mass/volume) 1 mg/dL NORMAL Urine leukocyte esterase detection by dipstick 1+ NEGATIVE Automated urine sediment erythrocyte count by microscopy (number/high power field) NONE NRG Automated urine sediment leukocyte count by microscopy (number/high power field ) [HPF] NRG Bacteria detection in urine sediment by light microscopy TRACE NRG Squamous epithelial cells detection in urine sediment by light microscopy 2-5 NRG Crystals detection in urine sediment by light microscopy NONE NRG Casts detection in urine sediment by light microscopy NONE NRG Mucus detection in urine sediment by light microscopy LARGE NRG Complete urinalysis with reflex to culture YES NRG Bacterial urine culture - 01/12/17 14:47 Bacterial urine culture FOOTNOTE NRG Encounters ACCT No. Visit Date/Time Discharge Status Pt. Type Provider Facility Loc./Unit Complaint [id number] 09/15/2016 17:24:00 2015 19:40:00 DIS Emergency REID SHIRLEY DO [facility] ER FACIAL NUMBNESS, FINGER STIFFNESS [id number] 04/06/2016 11:06:00 2015 00:01:00 DIS Outpatient SYBIL ELLISON N [facility] FS [id number] 03/25/2016 10:01:00 2015 00:01:00 DIS Outpatient SYBIL ELLISON N [facility] ONC [id number] 10/07/2015 13:56:00 2015 00:01:00 DIS Outpatient SYBIL ELLISON N [facility] ONC [id number] 12/16/2015 11:05:00 2015 00:01:00 DIS Outpatient SYBIL ELLISON N [facility] FS [id number] 09/16/2015 11:21:00 2014 23:59:59 CLS Outpatient SCOTSYBIL ESCOBAR N [facility] FS [id number] 06/10/2015 13:02:00 2014 00:01:00 DIS Outpatient SYBIL ELLISON N [facility] FS [id number] 04/15/2015 10:51:00 2014 00:01:00 DIS Outpatient SYBIL ELLISON N [facility] FS [id number] 04/22/2015 11:25:00 2014 23:59:59 CLS Outpatient SCOTSYBIL ESCOBAR N [facility] RAD [id number] 11/19/2014 11:31:00 2014 00:01:00 DIS Outpatient SYBIL ELLISON N [facility] FS [id number] 08/20/2014 14:28:00 2013 23:59:59 CLS Outpatient SYBIL ELLISON N [facility] FS [id number] 06/18/2014 13:58:00 2013 23:59:59 CLS Outpatient [id number] 05/21/2014 09:33:00 2013 23:59:59 CLS Outpatient [id number] 02/26/2014 13:11:00 2013 23:59:59 CLS Outpatient [id number] 12/04/2013 10:46:00 2013 23:59:59 CLS Outpatient [id number] 11/02/2013 10:49:00 2013 23:59:59 CLS Outpatient [id number] 10/09/2013 16:13:00 2012 23:59:59 CLS Outpatient [id number] 09/17/2013 14:08:00 2012 23:59:59 CLS Outpatient [id number] 09/12/2013 10:54:00 2012 23:59:59 CLS Outpatient [id number] 09/10/2013 14:36:00 2012 23:59:59 CLS Outpatient OMID HERNÁNDEZ [facility] RAD RECTAL CA,DIZZINESS, WEAKNESS [id number] 09/10/2013 13:16:00 2012 23:59:59 CLS Outpatient [id number] 08/21/2013 13:55:00 2012 23:59:59 CLS Outpatient [id number] 07/31/2013 13:13:00 2012 23:59:59 CLS Outpatient [id number] 07/05/2013 14:42:00 2012 23:59:59 CLS Outpatient [id number] 06/20/2013 13:10:00 2012 23:59:59 CLS Outpatient [id number] 05/29/2013 13:05:00 2012 23:59:59 CLS Outpatient [id number] 04/17/2013 12:56:00 2012 23:59:59 CLS Outpatient [id number] 03/20/2013 13:54:00 2012 23:59:59 CLS Outpatient [id number] 01/12/2017 14:37:00 Document Registration [id number] 01/04/2017 11:17:00 ACT Outpatient SYBIL ELLISON [facility] FS [id number] 12/03/2016 12:48:00 ACT Outpatient SYBIL ELLISON [facility] ONC [id number] 09/21/2016 10:38:00 ACT Outpatient SYBIL ELLISON [facility] FS [id number] 06/22/2016 16:05:00 ACT Outpatient SYBIL ELLISON [facility] FS [id number] 03/16/2016 14:07:00 ACT Outpatient SYBIL ELLISON [facility] FS
== END 2017-01-12 15:44 | disposition home or self-care (01) ==
LOC: EDUNIT# 14:05 → ER 14:08
DX: R42 Dizziness and giddiness (principal); N39.0 Urinary tract infection, site not specified; I10 Essential (primary) hypertension; Z79.82 Long term (current) use of aspirin; Z79.899 Other long term (current) drug therapy; Z79.02 Long term (current) use of antithrombotics/antiplatelets; Z85.038 Personal history of other malignant neoplasm of large intestine; Z93.3 Colostomy status
CPT/HCPCS: 36415; 80053; 81000; 84484; 85025; 87088; 93005; 96374

== ENCOUNTER → 2017-03-29 | Outpatient (CLI) | payer MEDICARE ==
[~2017-03-29] MED LIST changes: +CEFU250T80 PO
== END ==
LOC: FS 10:00
PROVIDERS: ATTEND Internal Medicine Hematology & Oncology
DX: Z08 Encounter for follow-up examination after completed treatment for malignant neoplasm (principal); Z85.048 Personal history of other malignant neoplasm of rectum, rectosigmoid junction, and anus; D50.0 Iron deficiency anemia secondary to blood loss (chronic); Z93.3 Colostomy status; Z92.21 Personal history of antineoplastic chemotherapy; Z92.3 Personal history of irradiation; Z90.49 Acquired absence of other specified parts of digestive tract; Z79.899 Other long term (current) drug therapy
CPT/HCPCS: 99213

== ENCOUNTER 2017-07-03 10:27 | Emergency (ER) | payer MEDICARE ==
[~2017-07-03] VITALS: Ht 167.6 cm; Wt 83.9 kg
--- OUTSIDE RECORDS SUMMARY | 2017-07-03 10:32 | XMS REPORT | Encounter Summary ---
Author [facility] Address Unknown Phone Unavailable Care Team Providers Care Cold Strip Feeder Name Role Phone PCP Unavailable Reason for Visit * Reason Comments General Question MISSED APPOINTMENT Encounter Details Date Type Department Care Team Description 04/29/2017 Telephone [facility] David Mccall DO General Question ([facility] Exam [address] APPOINTMENT ) [address] [place] [address] [place] [address] [phone] Social History Tobacco Use Types Packs/Day Years Used Date Never Smoker Smokeless Tobacco: Never Used Alcohol Use Drinks/Week oz/Week Comments No Sex Assigned at Date Recorded Not on file as of this encounter Plan of Treatment Not on fileas of this encounter Visit Diagnoses Not on filein this encounter
--- OUTSIDE RECORDS SUMMARY | 2017-07-03 10:32 | XMS REPORT | Clinical Summary ---
Author Author [facility] Organization [facility] Address Unknown Phone Unavailable Care Team Providers Care Phys Therapist Name Role Phone PCP Unavailable Source Comments Some departments are not documenting in the electronic medical record. If you do not see the information that you expected, contact Release of Information in the Health Information Management department at [phone] for further assistance in locating additional records.[facility] Allergies Active Allergy Reactions Severity Noted Date Comments Chocolate SEE COMMENTS 02/02/2013 Loses voice Sulfa (Sulfonamide ITCHING 02/27/2013 Antibiotics) Current Medications Prescription Sig. Disp. Refills [...] Problem Noted Date Rectal cancer (HCC) 02/27/2013 Encounters Date Type Specialty Care Team Description 04/29/2017 Telephone Oncology David Mccall DO General Question ( MISSED APPOINTMENT ) from Last 3 Months Social History Tobacco Use Types Packs/Day Years Used Date Never Smoker Smokeless Tobacco: Never Used Alcohol Use Drinks/Week oz/Week Comments No Sex Assigned at Date Recorded Not on file Last Filed Vital Signs Vital Sign Reading Time Taken Blood Pressure 176/88 08/20/2016 10:34 AM CDT Pulse 86 08/20/2016 10:34 AM CDT Temperature 36.7 C (98 F) 08/20/2016 10:34 AM CDT Respiratory Rate 18 08/20/2016 10:34 AM CDT Oxygen Saturation 100% 08/20/2016 10:34 AM CDT Inhaled Oxygen - - Concentration Weight 86.5 kg (190 lb 9.6 oz) 08/20/2016 10:34 AM CDT Height 167.6 cm (5' 5.98") 08/20/2016 10:34 AM CDT Body Mass Index 30.78 08/20/2016 10:34 AM CDT Plan of Treatment Health Maintenance Due Date Last Done Comments PHYSICAL (COMPREHENSIVE) 1940 EXAM PERTUSSIS VACCINE 1944 TETANUS VACCINE 1950 SHINGLES VACCINE 1993 OSTEOPOROSIS SCREENING 1998 PREVNAR/PNEUMOVAX (#1) 1998 INFLUENZA VACCINE 06/24/2017 Results Not on filefrom Last 3 Months
[2017-07-03 12:09] LABS: BASOPHILS % (AUTO) 0 % (0-10); EOSINOPHILS # (AUTO) 0.1 10^3/uL (0.0-0.3); EOSINOPHILS % (AUTO) 1 % (0-10); LYMPHOCYTES % (AUTO) 10 % (12-44); MEAN CORPUSCULAR HEMOGLOBIN 31 PG (25-34); MEAN CORPUSCULAR HGB CONC 35 G/DL (32-36); MEAN CORPUSCULAR VOLUME 88 FL (80-99); MEAN PLATELET VOLUME 9.4 FL (7.4-10.4); MONOCYTES # (AUTO) 0.6 X 10^3 (0.0-1.0); MONOCYTES % (AUTO) 5 % (0-12); NEUTROPHILS # (AUTO) 8.7 X 10^3 (1.8-7.8); NEUTROPHILS % (AUTO) 84 % (42-75); PLATELET COUNT 327 10^3/uL (130-400); RED BLOOD COUNT 4.57 10^6/uL (4.35-5.85); RED CELL DISTRIBUTION WIDTH 12.8 % (10.0-14.5); WHITE BLOOD COUNT 10.3 10^3/uL (4.3-11.0)
[2017-07-03 12:10] LABS: KETONES,URINE 2+ (NEGATIVE); LEUKOCYTE ESTERASE ,URINE 3+ (NEGATIVE); NITRITE,URINE NEGATIVE (NEGATIVE); PH,URINE 5 (5-9); PROTEIN,URINE 2+ (NEGATIVE); UROBILINOGEN,URINE 4 MG/DL (NORMAL)
[2017-07-03 12:21] LABS: CALCIUM OXALATE CRYSTALS,UR RARE /LPF; SQUAMOUS EPITHELIAL CELL,UR 0-2 /HPF; WBC,URINE 25-50 /HPF
[2017-07-03 12:22] LABS: BILIRUBIN,URINE 2+ (NEGATIVE)
[2017-07-03 12:26] LABS: ANION GAP 13 MMOL/L (5-14); CARBON DIOXIDE 23 MMOL/L (21-32); CHLORIDE 99 MMOL/L (98-107); POTASSIUM 3.8 MMOL/L (3.6-5.0); SODIUM 135 MMOL/L (135-145)
[2017-07-03 12:27] LABS: ALANINE AMINOTRANSFERASE 10 U/L (0-55); AMYLASE 37 U/L (25-125); ASPARTATE AMINO TRANSFERASE 14 U/L (5-34); BILIRUBIN,TOTAL 0.7 MG/DL (0.1-1.0); BLOOD UREA NITROGEN 16 MG/DL (7-18); BUN/CREATININE RATIO 18; CALCIUM 9.5 MG/DL (8.5-10.1); CREATININE SERUM 0.87 MG/DL (0.60-1.30); GFR ESTIMATED > 60; GLUCOSE 105 MG/DL (70-105); LIPASE 20 U/L (8-78); TOTAL PROTEIN 6.9 GM/DL (6.4-8.2)
[2017-07-03] MEDS ORDERED: LACT1CAP8 PO (12:36)
[2017-07-03] MEDS ORDERED: ONDA4TAB8 PO (12:36)
[2017-07-03] MEDS ORDERED: NITR-65 PO (12:36)
[2017-07-03] MEDS ORDERED: PHEN-640 PO (12:36)
--- NOTE | 2017-07-03 12:37 | ED GI ---
General Chief Complaint: Abdominal/GI Problems Stated Complaint: VOMITING,LETHARGY Nursing Triage Note: PT REPORTS N/V/D X 2 DAYS. SHE STATES SHE HAS BEEN AROUND SEVERAL PEOPLE THAT HAVE C DIFF AND SHE IS CONCERNED SHE MAY HAVE IT NOW. Sepsis Screen: No Definite Risk Allergies and Home Medications Allergies Coded Allergies: No Known Drug Allergies (Unverified , 12/13/11) Home Medications Aspirin 81 Mg Tablet.dr, 81 MG PO DAILY, (Reported) Cefuroxime Axetil 250 Mg Tablet, 250 MG PO BID, #10 Prescribed by: GLORIA COLON on 01/12/17 1522 Clopidogrel Bisulfate 75 Mg Tablet, 75 MG PO DAILY, #10 Prescribed by: REID SHIRLEY on 09/15/16 1916 Levothyroxine Sodium 100 Mcg Tablet, 1 EACH PO DAILY, (Reported) Losartan Potassium 50 Mg Tablet, 75 MG PO DAILY, (Reported) Naproxen Sodium 220 Mg Capsule, 220 MG PO, (Reported) [lands leg cramps] , (Reported) Past Hycjunq-Zmirpc-Pyelux Hx Patient Social History Alcohol Use: Denies Use Recreational Drug Use: No Smoking Status: Never a Smoker 2nd Hand Smoke Exposure: No Recent Foreign Travel: No Contact w/Someone Who Travel: No Recent Infectious Disease Expo: No Recent Hopitalizations: No Physical Abuse: No Sexual Abuse: No Immunizations Up To Date Date of Influenza Vaccine: Aug 24, 2011 Seasonal Allergies Seasonal Allergies: No Surgeries History of Surgeries: Yes Surgeries: Abdominal, Bowel Surgery, Gallbladder, Hysterectomy, Oophorectomy, Orthopedic, Thyroidectomy Respiratory History of Respiratory Disorde: No Cardiovascular History of Cardiac Disorders: Yes Cardiac Disorders: Hypertension Neurological History of Neurological Disord: No Reproductive System Hx Reproductive Disorders: No NURSE PARALEGAL History: Hysterectomy, Menopausal Genitourinary Genitourinary Disorders: UTI-Chronic Gastrointestinal History of Gastrointestinal Di: Yes (COLON CANCER--S/P RESECTION WITH COLOSTOMY ) Musculoskeletal History of Musculoskeletal Dis: No Endocrine History of Endocrine Disorders: Yes (THYROIDECTOMY FOR BENIGN THYROID NODULES) Endocrine Disorders: Hypothyroidsim Cancer History of Cancer: Yes Cancer: Rectal, Colon Psychosocial History of Psychiatric Problem: No Suicide Risk Score: 0 Integumentary History of Skin or Integumenta: No Blood Transfusions History of Blood Disorders: No Physical Exam Vital Signs VS - Last 72 Hours, by Label 07/03/17 11:00 Temp 97.2 Pulse 75 Resp 16 B/P (MAP) 143/79 Pulse Ox 98 O2 Delivery Room Air Capillary Refill : Less Than 3 Seconds Progress/Results/Core Measures Results/Orders Lab Results Laboratory Tests Test 07/03/17 11:50 Range/Units White Blood Count 10.3 4.3-11.0 10^3/uL Red Blood Count 4.57 4.35-5.85 10^6/uL Hemoglobin 14.0 11.5-16.0 G/DL Hematocrit 40 35-52 % Mean Corpuscular Volume 88 80-99 FL Mean Corpuscular Hemoglobin 31 25-34 PG Mean Corpuscular Hemoglobin Concent 35 32-36 G/DL Red Cell Distribution Width 12.8 10.0-14.5 % Platelet Count 327 130-400 10^3/uL Mean Platelet Volume 9.4 7.4-10.4 FL Neutrophils (%) (Auto) 84 H 42-75 % Lymphocytes (%) (Auto) 10 L 12-44 % Monocytes (%) (Auto) 5 0-12 % Eosinophils (%) (Auto) 1 0-10 % Basophils (%) (Auto) 0 0-10 % Neutrophils # (Auto) 8.7 H 1.8-7.8 X 10^3 Lymphocytes # (Auto) 1.0 1.0-4.0 X 10^3 Monocytes # (Auto) 0.6 0.0-1.0 X 10^3 Eosinophils # (Auto) 0.1 0.0-0.3 10^3/uL Basophils # (Auto) 0.0 0.0-0.1 10^3/uL Urine Color CLAUDIA H Urine Clarity CLOUDY H Urine pH 5 5-9 Urine Specific [place] 1.025 H 1.016-1.022 Urine Protein 2+ H NEGATIVE Urine Glucose (UA) NEGATIVE NEGATIVE Urine Ketones 2+ H NEGATIVE Urine Nitrite NEGATIVE NEGATIVE Urine Bilirubin 2+ H NEGATIVE Urine Urobilinogen 4 H NORMAL MG/DL Urine Leukocyte Esterase 3+ H NEGATIVE Urine RBC (Auto) NEGATIVE NEGATIVE Urine RBC NONE /HPF Urine WBC 25-50 H /HPF Urine Squamous Epithelial Cells 0-2 /HPF Urine Crystals PRESENT H /LPF Urine Calcium Oxalate Crystals RARE H /LPF Urine Bacteria TRACE /HPF Urine Casts NONE /LPF Urine Mucus MODERATE H /LPF Urine Culture Indicated YES Sodium Level 135 135-145 MMOL/L Potassium Level 3.8 3.6-5.0 MMOL/L Chloride Level 99 98-107 MMOL/L Carbon Dioxide Level 23 21-32 MMOL/L Anion Gap 13 5-14 MMOL/L Blood Urea Nitrogen 16 7-18 MG/DL Creatinine 0.87 0.60-1.30 MG/DL Estimat Glomerular Filtration Rate > 60 BUN/Creatinine Ratio 18 Glucose Level 105 70-105 MG/DL Calcium Level 9.5 8.5-10.1 MG/DL Total Bilirubin 0.7 0.1-1.0 MG/DL Aspartate Amino Transf (AST/SGOT) 14 5-34 U/L Alanine Aminotransferase (ALT/SGPT) 10 0-55 U/L Alkaline Phosphatase 89 40-136 U/L Total Protein 6.9 6.4-8.2 GM/DL Albumin 4.0 3.2-4.5 GM/DL Amylase Level 37 25-125 U/L Lipase 20 8-78 U/L My Orders Orders - CASPER,REID K DO Saline Lock/Iv-Start (07/03/17 11:50) Amylase (07/03/17 11:50) Cbc With Automated Diff (07/03/17 11:50) Comprehensive Metabolic Panel (07/03/17 11:50) Lipase (07/03/17 11:50) Ua Culture If Indicated (07/03/17 11:50) Urine Culture (07/03/17 11:50) Rocephin 1g Iv (07/03/17 12:45) Vital Signs/I&O Vital Sign - Last 12Hours 07/03/17 11:00 Temp 97.2 Pulse 75 Resp 16 B/P (MAP) 143/79 Pulse Ox 98 O2 Delivery Room Air Blood Pressure Mean: 100 Departure Impression Impression: Primary Impression: Urinary tract infection Disposition: 01 HOME, SELF-CARE Condition: Stable Departure-Patient Inst. Referrals: NO,LOCAL PHYSICIAN (PCP/Family) Primary Care Physician Patient Instructions: [id number], Urinary Tract Infection, Adult (DC) Add. Discharge Instructions: CLEAR LIQUIDS--WATER, BROTH, JELLO, GATORADE BRATS DIET--BANANAS, RICE, APPLESAUCE, TOAST, SALTINES FOLLOW UP WITH YOUR DR IN 2-3 DAYS FOR FURTHER CARE All discharge instructions reviewed with patient and/or family. Voiced understanding. Scripts Ondansetron (Zofran Odt) 4 Mg Tab.rapdis 4 MG PO Q4H for Nausea/Vomiting, #10 TAB Prov: REID SHIRLEY DO 07/03/17 Phenazopyridine HCl (Pyridium) 200 Mg Tablet 1 TAB PO TID for BLADDER DISCOMFORT, #15 TAB Prov: REID SHIRLEY DO 07/03/17 Lactobacillus Acidophilus (Acidophilus) 1 Each Capsule 2 EACH PO QID, #80 CAP Prov: REID SHIRLEY DO 07/03/17 Nitrofurantoin Monohyd/M-Cryst (Macrobid 100 mg Capsule) 100 Mg Capsule 100 MG PO BID, #20 CAP Prov: REID SHIRLEY DO 07/03/17 REID SHIRLEY DO Jul 03, 2017 12:37
[2017-07-03] MEDS ORDERED: cefTRIAXone INJECTION 1,000 MG in NS (IVPB) 50 ML IV ONE (12:45)
[2017-07-03 13:20] VITALS: BP 143/79
== END 2017-07-03 13:20 | disposition home or self-care (01) ==
LOC: EDUNIT# 10:27 → ER 10:29
DX: N39.0 Urinary tract infection, site not specified (principal); I10 Essential (primary) hypertension; E03.9 Hypothyroidism, unspecified; Z87.440 Personal history of urinary (tract) infections; Z93.3 Colostomy status; Z79.82 Long term (current) use of aspirin; Z90.710 Acquired absence of both cervix and uterus; Z85.038 Personal history of other malignant neoplasm of large intestine; Z90.89 Acquired absence of other organs
CPT/HCPCS: 36415; 80053; 81000; 82150; 83690; 85025; 87088; 96365

== ENCOUNTER 2017-08-03 11:05 | Emergency (ER) | payer MEDICARE ==
[~2017-08-03] VITALS: Ht 170.2 cm; Wt 79.4 kg
[~2017-08-03 11:05] MED LIST changes: +LACT1CAP8 PO; +NITR-65 PO; +ONDA4TAB8 PO; +PHEN-640 PO
--- OUTSIDE RECORDS SUMMARY | 2017-08-03 11:12 | XMS REPORT | Clinical Summary ---
Author Author [facility] Organization [facility] Address Unknown Phone Unavailable Care Team Providers Care Institution Director Name Role Phone PCP Unavailable Source Comments Some departments are not documenting in the electronic medical record. If you do not see the information that you expected, contact Release of Information in the Health Information Management department at [phone] for further assistance in locating additional records.[facility] Allergies Active Allergy Reactions Severity Noted Date [...] SCREENING 1998 PREVNAR/PNEUMOVAX (#1) 1998 INFLUENZA VACCINE 07/24/2017 Results Not on filefrom Last 3 Months
[2017-08-03 11:47] LABS: KETONES,URINE 3+ (NEGATIVE); LEUKOCYTE ESTERASE ,URINE 2+ (NEGATIVE); NITRITE,URINE NEGATIVE (NEGATIVE); PH,URINE 5 (5-9); PROTEIN,URINE 2+ (NEGATIVE); UROBILINOGEN,URINE 4 MG/DL (NORMAL)
[2017-08-03] MEDS ORDERED: CIPR500T4 (11:52)
[2017-08-03 12:02] LABS: BILIRUBIN,URINE 2+ (NEGATIVE)
[2017-08-03 12:51] LABS: BASOPHILS # (AUTO) 0.1 10^3/uL (0.0-0.1); BASOPHILS % (AUTO) 1 % (0-10); EOSINOPHILS # (AUTO) 0.1 10^3/uL (0.0-0.3); EOSINOPHILS % (AUTO) 1 % (0-10); LYMPHOCYTES # (AUTO) 0.9 X 10^3 (1.0-4.0); LYMPHOCYTES % (AUTO) 10 % (12-44); MEAN CORPUSCULAR HEMOGLOBIN 30 PG (25-34); MEAN CORPUSCULAR HGB CONC 35 G/DL (32-36); MEAN CORPUSCULAR VOLUME 87 FL (80-99); MEAN PLATELET VOLUME 9.8 FL (7.4-10.4); MONOCYTES # (AUTO) 0.7 X 10^3 (0.0-1.0); MONOCYTES % (AUTO) 8 % (0-12); NEUTROPHILS % (AUTO) 81 % (42-75); PLATELET COUNT 332 10^3/uL (130-400); RED BLOOD COUNT 4.21 10^6/uL (4.35-5.85); RED CELL DISTRIBUTION WIDTH 13.2 % (10.0-14.5); WHITE BLOOD COUNT 8.7 10^3/uL (4.3-11.0)
[2017-08-03 13:13] LABS: ALBUMIN 3.9 GM/DL (3.2-4.5); BILIRUBIN,TOTAL 0.5 MG/DL (0.1-1.0); CALCIUM 9.4 MG/DL (8.5-10.1); CREATININE SERUM 0.92 MG/DL (0.60-1.30); POTASSIUM 3.3 MMOL/L (3.6-5.0); TOTAL PROTEIN 6.5 GM/DL (6.4-8.2)
--- NOTE | 2017-08-03 13:21 | ED General ---
General Chief Complaint: Altered Mental Status Stated Complaint: AMS,UTI Nursing Triage Note: ARRIVED VIA WC TO ROOM 09. FAMILY STATES SHE WAS DX WITH A UTI X1 WEEK AGO ET PUT ON CIPRO. HAS HAD INCREASED AMS SINCE. CALLED HOME HEALTH WHO WOULD NOT BE ABLE TO COME TILL TOMORROW AND WAS TOLD TO COME TO THE ER. Nursing Sepsis Screen: No Definite Risk Source of Information: Patient Exam Limitations: No Limitations History of Present Illness Time Seen by Provider: 13:00 Initial Comments The patient's an 82-year-old white female. Her to family member states that she is definitely not on her usual energetic alert game today. She was seen last week at an outpatient facility in [place] and was given Cipro for an urinary tract infection Timing/Duration: 5-6 Days Severity: Mild, Moderate Associated Systoms: Headaches, Loss of Appetite, Weakness Allergies and Home Medications Allergies Coded Allergies: No Known Drug Allergies (Unverified , 12/13/11) Home Medications Aspirin 81 Mg Tablet.dr, 81 MG PO DAILY, (Reported) Cefuroxime Axetil 250 Mg Tablet, 250 MG PO BID, #10 Prescribed by: GLORIA COLON on 01/12/17 1522 Ciprofloxacin HCl 500 Mg Tablet, (Reported) Clopidogrel Bisulfate 75 Mg Tablet, 75 MG PO DAILY, #10 Prescribed by: REID SHIRLEY on 09/15/16 1916 Lactobacillus Acidophilus 1 Each Capsule, 2 EACH PO QID, #80 Prescribed by: REID SHIRLEY on 07/03/17 1236 Levothyroxine Sodium 100 Mcg Tablet, 1 EACH PO DAILY, (Reported) Losartan Potassium 50 Mg Tablet, 75 MG PO DAILY, (Reported) Naproxen Sodium 220 Mg Capsule, 220 MG PO, (Reported) Nitrofurantoin Monohyd/M-Cryst 100 Mg Capsule, 100 MG PO BID, #20 Prescribed by: REID SHIRLEY on 07/03/17 1236 Ondansetron 4 Mg Tab.rapdis, 4 MG PO Q4H, #10 Prescribed by: REID SHIRLEY on 07/03/17 1236 Phenazopyridine HCl 200 Mg Tablet, 1 TAB PO TID, #15 Prescribed by: REID SHIRLEY on 07/03/17 1236 [hylands leg cramps] , (Reported) Constitutional: see HPI EENTM: no symptoms reported Respiratory: no symptoms reported Cardiovascular: no symptoms reported Gastrointestinal: no symptoms reported Genitourinary: no symptoms reported Musculoskeletal: no symptoms reported Skin: no symptoms reported Psychiatric/Neurological: No Symptoms Reported Hematologic/Lymphatic: No Symptoms Reported Immunological/Allergic: no symptoms reported Past Rsenhxt-Emdsnj-Lxxwug Hx Patient Social History Alcohol Use: Denies Use Recreational Drug Use: No 2nd Hand Smoke Exposure: No Recent Foreign Travel: No Contact w/Someone Who Travel: No Recent Infectious Disease Expo: No Recent Hopitalizations: No Immunizations Up To Date Date of Influenza Vaccine: Aug 24, 2011 Seasonal Allergies Seasonal Allergies: No Surgeries History of Surgeries: Yes (COLON RESECTION WITH COLOSTOMY FOR COLON CANCER) Surgeries: Abdominal, Bowel Surgery, Gallbladder, Hysterectomy, Oophorectomy, Orthopedic, Thyroidectomy Respiratory History of Respiratory Disorde: No Cardiovascular History of Cardiac Disorders: Yes Cardiac Disorders: Hypertension Neurological History of Neurological Disord: No Reproductive System Hx Reproductive Disorders: No LICENSED INVESTMENT SALES ASSISTANT History: Hysterectomy, Menopausal Genitourinary History of Genitourinary Disor: Yes Genitourinary Disorders: UTI-Chronic Gastrointestinal History of Gastrointestinal Di: Yes (COLON CANCER--S/P RESECTION WITH COLOSTOMY ) Musculoskeletal History of Musculoskeletal Dis: Yes (WALKS WITH WALKER) Endocrine History of Endocrine Disorders: Yes (THYROIDECTOMY FOR BENIGN THYROID NODULES) Endocrine Disorders: Hypothyroidsim Cancer History of Cancer: Yes Cancer: Rectal, Colon Psychosocial History of Psychiatric Problem: No Integumentary History of Skin or Integumenta: No Blood Transfusions History of Blood Disorders: No Physical Exam Vital Signs Vital Sign - Last 12Hours 08/03/17 11:25 Temp 98.0 Pulse 87 Resp 18 B/P (MAP) 130/62 Pulse Ox 97 Capillary Refill : Less Than 3 Seconds General Appearance: Mild Distress, Other (apparent confusion) Eyes: Bilateral Eye Normal Inspection HEENT: Normal ENT Inspection Neck: Full Range of Motion, Normal Inspection, Non Tender, Supple, Carotid Bruit Respiratory: Chest Non Tender, Lungs Clear, Normal Breath Sounds, No Accessory Muscle Use, No Respiratory Distress Cardiovascular: Regular Rate, Rhythm, No Edema, No Gallop, No JVD, No Murmur, Normal Peripheral Pulses Back: Normal Inspection, No CVA Tenderness, No Vertebral Tenderness Extremity: Normal Capillary Refill, Normal Inspection, Normal Range of Motion, Non Tender, No Calf Tenderness, No Pedal Edema Neurologic/Psychiatric: Alert, Oriented x3, No Motor/Sensory Deficits, Normal Mood/Affect Skin: Normal Color, Warm/Dry Lymphatic: No Adenopathy Progress/Results/Core Measures Results/Orders Lab Results Laboratory Tests Test 08/03/17 11:30 08/03/17 12:30 Range/Units Urine Color YELLOW Urine Clarity CLEAR Urine pH 5 5-9 Urine Specific [place] 1.025 H 1.016-1.022 Urine Protein 2+ H NEGATIVE Urine Glucose (UA) NEGATIVE NEGATIVE Urine Ketones 3+ H NEGATIVE Urine Nitrite NEGATIVE NEGATIVE Urine Bilirubin 2+ H NEGATIVE Urine Urobilinogen 4 H NORMAL MG/DL Urine Leukocyte Esterase 2+ H NEGATIVE Urine RBC (Auto) NEGATIVE NEGATIVE Urine RBC NONE /HPF Urine WBC 10-25 H /HPF Urine Squamous Epithelial Cells 5-10 /HPF Urine Crystals NONE /LPF Urine Bacteria TRACE /HPF Urine Casts PRESENT /LPF Urine Hyaline Casts 5-10 H /LPF Urine Mucus MODERATE H /LPF Urine Culture Indicated YES White Blood Count 8.7 4.3-11.0 10^3/uL Red Blood Count 4.21 L 4.35-5.85 10^6/uL Hemoglobin 12.7 11.5-16.0 G/DL Hematocrit 36 35-52 % Mean Corpuscular Volume 87 80-99 FL Mean Corpuscular Hemoglobin 30 25-34 PG Mean Corpuscular Hemoglobin Concent 35 32-36 G/DL Red Cell Distribution Width 13.2 10.0-14.5 % Platelet Count 332 130-400 10^3/uL Mean Platelet Volume 9.8 7.4-10.4 FL Neutrophils (%) (Auto) 81 H 42-75 % Lymphocytes (%) (Auto) 10 L 12-44 % Monocytes (%) (Auto) 8 0-12 % Eosinophils (%) (Auto) 1 0-10 % Basophils (%) (Auto) 1 0-10 % Neutrophils # (Auto) 7.0 1.8-7.8 X 10^3 Lymphocytes # (Auto) 0.9 L 1.0-4.0 X 10^3 Monocytes # (Auto) 0.7 0.0-1.0 X 10^3 Eosinophils # (Auto) 0.1 0.0-0.3 10^3/uL Basophils # (Auto) 0.1 0.0-0.1 10^3/uL Sodium Level 137 135-145 MMOL/L Potassium Level 3.3 L 3.6-5.0 MMOL/L Chloride Level 102 98-107 MMOL/L Carbon Dioxide Level 26 21-32 MMOL/L Anion Gap 9 5-14 MMOL/L Blood Urea Nitrogen 23 H 7-18 MG/DL Creatinine 0.92 0.60-1.30 MG/DL Estimat Glomerular Filtration Rate 58 BUN/Creatinine Ratio 25 Glucose Level 103 70-105 MG/DL Calcium Level 9.4 8.5-10.1 MG/DL Total Bilirubin 0.5 0.1-1.0 MG/DL Aspartate Amino Transf (AST/SGOT) 20 5-34 U/L Alanine Aminotransferase (ALT/SGPT) 11 0-55 U/L Alkaline Phosphatase 83 40-136 U/L Total Protein 6.5 6.4-8.2 GM/DL Albumin 3.9 3.2-4.5 GM/DL My Orders Orders - RADHA HALL MD Ua Culture If Indicated (08/03/17 11:38) Cbc With Automated Diff (08/03/17 11:42) Comprehensive Metabolic Panel (08/03/17 11:42) Urine Culture (08/03/17 11:30) Ceftriaxone Injection (Rocephin Injectio (08/03/17 13:30) Medications Given in ED Current Medications Medications Dose Ordered Sig/Mary Route Start Time Stop Time Status Last Admin Dose Admin Ceftriaxone Sodium 1000 mg/ Sodium Chloride 50 ml @ 100 mls/hr ONCE ONCE IV 08/03/17 13:30 08/03/17 13:59 08/03/17 13:39 100 MLS/HR Vital Signs/I&O Vital Sign - Last 12Hours 08/03/17 11:25 Temp 98.0 Pulse 87 Resp 18 B/P (MAP) 130/62 Pulse Ox 97 Blood Pressure Mean: 84 Departure Communication (Admissions) Progress Notes CBC shows a white blood count to be normal. The patient is receiving Rocephin IV as our experience suggests that this is a better choice for her UTI. The hope is for her to be able to manage at home. Her mobile plant operators state that they have some concern about whether she will take enough oral fluids. Accordingly a liter of normal saline will be given as well. Impression Impression: Primary Impression: urinary tract infection Disposition: 01 HOME, SELF-CARE Condition: Stable/Unchanged Departure-Patient Inst. Referrals: LB HOLT MD (PCP/Family) Primary Care Physician RADHA HALL MD Aug 03, 2017 13:21
[2017-08-03] MEDS ORDERED: cefTRIAXone INJECTION 1,000 MG in NS (IVPB) 50 ML IV ONE (13:30)
[2017-08-03] MEDS ORDERED: NS IV 1000 ML 1,000 ML IV SCH (13:45)
[2017-08-03] MEDS ORDERED: Omnicef (15:25)
[2017-08-03 15:48] VITALS: BP 115/60
== END 2017-08-03 15:48 | disposition home or self-care (01) ==
LOC: EDUNIT# 11:05 → ER 11:08
DX: N39.0 Urinary tract infection, site not specified (principal); I10 Essential (primary) hypertension; E03.9 Hypothyroidism, unspecified; Z79.82 Long term (current) use of aspirin; Z93.3 Colostomy status; Z90.710 Acquired absence of both cervix and uterus; Z90.89 Acquired absence of other organs; Z85.038 Personal history of other malignant neoplasm of large intestine
CPT/HCPCS: 36415; 80053; 81000; 85025; 87088

== ENCOUNTER → 2017-08-18 | Outpatient (CLI) | payer MEDICARE, BC ==
[~2017-08-18] MED LIST changes: +CIPR500T4; +Omnicef
--- NOTE | 2017-08-18 12:21 | Diagnostic Imaging Report ---
3 views of the right ribs. INDICATION: Fall. FINDINGS: There are deformities along the lateral aspect of the right sixth, seventh, and eighth ribs which appear to be related to an old injury. No definite acute fracture is seen. There is suggestion of a 2.2-cm nodule in the right upper lobe. Surgical clips in the upper right abdomen seen. IMPRESSION: There is a 2.2-cm pulmonary nodule in the right upper lobe. CT correlation is suggested. Ms. Britney Harper, the nurse practitioner taking care of the patient was informed of the findings at time of dictation. Dictated by: Dictated on workstation # [id number]
== END ==
LOC: RAD 11:16
PROVIDERS: ATTEND Nurse Practitioner Family
DX: R91.1 Solitary pulmonary nodule (principal); R07.81 Pleurodynia
CPT/HCPCS: 71100

== ENCOUNTER 2017-08-29 14:25 | Outpatient (RCR) | payer MEDICARE ==
[2017-07-26 11:01] LABS: CLARITY,URINE CLEAR; COLOR,URINE YELLOW; GLUCOSE, URINE (UA) NEGATIVE (NEGATIVE); KETONES,URINE 1+ (NEGATIVE); LEUKOCYTE ESTERASE ,URINE 3+ (NEGATIVE); NITRITE,URINE NEGATIVE (NEGATIVE); PH,URINE 6 (5-9); PROTEIN,URINE 2+ (NEGATIVE); UROBILINOGEN,URINE 1 MG/DL (NORMAL)
[2017-07-26 11:27] LABS: BACTERIA,URINE TRACE /HPF; BILIRUBIN,URINE 1+ (NEGATIVE); CALCIUM OXALATE CRYSTALS,UR FEW /LPF; RBC,URINE 0-2 /HPF; WBC,URINE 25-50 /HPF
[2017-08-29 15:04] LABS: BASOPHILS # (AUTO) 0.1 10^3/uL (0.0-0.1); BASOPHILS % (AUTO) 1 % (0-10); EOSINOPHILS # (AUTO) 0.1 10^3/uL (0.0-0.3); EOSINOPHILS % (AUTO) 2 % (0-10); HEMATOCRIT 37 % (35-52); HEMOGLOBIN 12.5 G/DL (11.5-16.0); LYMPHOCYTES # (AUTO) 0.8 X 10^3 (1.0-4.0); LYMPHOCYTES % (AUTO) 13 % (12-44); MEAN CORPUSCULAR HEMOGLOBIN 30 PG (25-34); MEAN CORPUSCULAR HGB CONC 34 G/DL (32-36); MEAN CORPUSCULAR VOLUME 87 FL (80-99); MEAN PLATELET VOLUME 9.1 FL (7.4-10.4); MONOCYTES # (AUTO) 0.5 X 10^3 (0.0-1.0); MONOCYTES % (AUTO) 8 % (0-12); NEUTROPHILS % (AUTO) 77 % (42-75); PLATELET COUNT 410 10^3/uL (130-400); RED BLOOD COUNT 4.21 10^6/uL (4.35-5.85); WHITE BLOOD COUNT 6.4 10^3/uL (4.3-11.0)
[2017-08-29 15:27] LABS: ALANINE AMINOTRANSFERASE 10 U/L (0-55); ALKALINE PHOSPHATASE 159 U/L (40-136); BILIRUBIN,TOTAL 0.6 MG/DL (0.1-1.0); BUN/CREATININE RATIO 18; CALCIUM 9.4 MG/DL (8.5-10.1); CARBON DIOXIDE 26 MMOL/L (21-32); CHLORIDE 102 MMOL/L (98-107); CREATININE SERUM 0.79 MG/DL (0.60-1.30); GFR ESTIMATED > 60; GLUCOSE 121 MG/DL (70-105); POTASSIUM 3.5 MMOL/L (3.6-5.0); SODIUM 138 MMOL/L (135-145); TOTAL PROTEIN 6.5 GM/DL (6.4-8.2)
[2017-09-08] MEDS ORDERED: CEPH500C PO (05:51)
[2017-09-08] MEDS ORDERED: SERT25TA5 PO (05:51)
[2017-09-08] MEDS ORDERED: LEVO100T7 PO (08:22)
[2017-09-11] MEDS ORDERED: TRAM50TA2 PO (11:07)
[2017-09-11] MEDS ORDERED: ENOX40DI8 SC (11:07)
[2017-09-12] MEDS ORDERED: MENT71OI TOP (09:07)
[2017-09-12] MEDS ORDERED: ACID1TAB PO (09:07)
[2017-09-12] MEDS ORDERED: POLY17PO23 PO (09:07)
== END 2017-10-24 | disposition home or self-care (01) ==
LOC: ONC 14:25
PROVIDERS: ATTEND Internal Medicine Hematology & Oncology
DX: Z08 Encounter for follow-up examination after completed treatment for malignant neoplasm (principal); Z85.048 Personal history of other malignant neoplasm of rectum, rectosigmoid junction, and anus; D50.0 Iron deficiency anemia secondary to blood loss (chronic); N39.0 Urinary tract infection, site not specified; R29.898 Other symptoms and signs involving the musculoskeletal system; Z93.3 Colostomy status; Z92.21 Personal history of antineoplastic chemotherapy; Z92.3 Personal history of irradiation; Z90.49 Acquired absence of other specified parts of digestive tract; Z79.899 Other long term (current) drug therapy
CPT/HCPCS: 36415; 80053; 81000; 82378; 82728; 85025; 87088; 99213

== ENCOUNTER 2017-09-08 05:07 | Inpatient (IN) | payer MEDICARE ==
[~2017-09-08] VITALS: Ht 170.2 cm; Wt 77.6 kg
[2017-09-08] MEDS ORDERED: NS IV 500 ML 500 ML IV ONE (05:13)
--- OUTSIDE RECORDS SUMMARY | 2017-09-08 05:13 | XMS REPORT | Continuity of Care Document ---
Author Author [facility] Organization [facility] Address Unknown Phone Unavailable Care Team Providers Care Food Production Associate Name Role Phone [employer] Unavailable Unavailable Problems Medications Allergies, Adverse Reactions, Alerts Immunizations Results Vital Signs Encounters Location Location Details Encounter Type Encounter Number Reason For Visit Attending Provider ADM Date DC Date Status Source O [id number] AMBER TRIPLETT 05/25/2013 05/25/2013 Active [facility] O EMILEE FRAGA 09/29/2017 Active [facility] Procedures Plan of Care Social History Assessment and Plan Family History Value Date Source Advance Directives Order Name Results Value Date Source
--- OUTSIDE RECORDS SUMMARY | 2017-09-08 05:13 | XMS REPORT | Clinical Summary ---
Author Author [facility] Organization [facility] Address Unknown Phone Unavailable Care Team Providers Care Environmental Associate Name Role Phone PCP Unavailable Source Comments Some departments are not documenting in the electronic medical record. If you do not see the information that you expected, contact Release of Information in the Health Information Management department at [phone] for further assistance in locating additional records.[facility] Allergies Active Allergy Reactions Severity Noted [...] SCREENING 1998 PREVNAR/PNEUMOVAX (#1) 1998 INFLUENZA VACCINE 05/24/2017 Results Not on filefrom Last 3 Months
--- NOTE | 2017-09-08 05:18 | ED Fall/Injury ---
General Stated Complaint: FALL Source: patient, EMS Exam Limitations: clinical condition (CAMACHO HAN) History of Present Illness Time seen by provider: 05:05 Initial Comments Patient presents to ER by EMS from her home where she was living with her . EMS reports that they were called out earlier tonight. The patient had a fall may help to get back up into the chair. Family reports she was acting confused but there are few transport. They were called again is a patient had fallen this time she had obvious deformity to her right upper leg with external rotation of the foot. Patient was having quite a bit of pain so they started a 20-gauge in her antecubital fossa and gave her 50 g of fentanyl. Patient denies any shortness of breath, cough, recent fevers, chills. She is oriented to self only. She did not have incontinence or pass out and it is unknown if she hit her head. (CAMACHO HAN) Allergies and Home Medications Allergies Coded Allergies: No Known Drug Allergies (Unverified , 12/13/11) Home Medications Aspirin 81 Mg Tablet.dr, 81 MG PO DAILY, (Reported) Cephalexin 500 Mg Capsule, 500 MG PO, (Reported) Levothyroxine Sodium 100 Mcg Tablet, 1 EACH PO DAILY, (Reported) Losartan Potassium 50 Mg Tablet, 75 MG PO DAILY, (Reported) Naproxen Sodium 220 Mg Capsule, 220 MG PO, (Reported) Sertraline HCl 25 Mg Tablet, 25 MG PO, (Reported) Constitutional: see HPI (review of systems is limited due to patient's altered mental status.), No chills, No diaphoresis Eyes: Denies Blindness, Denies Blurred Vision Ears, Nose, Mouth, Throat: denies ear pain, denies nose pain, denies epistaxis Respiratory: No cough, No short of breath Cardiovascular: No chest pain, No palpitations Gastrointestinal: No abdominal pain, No nausea Genitourinary: No discharge, No dysuria Musculoskeletal: No back pain, joint pain (right hip) (CAMACHO HAN) Past Fdvzejj-Fxgmnd-Xcpcdv Hx Patient Social History 2nd Hand Smoke Exposure: No Recent Foreign Travel: No Contact w/Someone Who Travel: No Recent Hopitalizations: No (CAMACHO HAN) Immunizations Up To Date Date of Influenza Vaccine: Aug 24, 2011 (CAMACHO HAN) Seasonal Allergies Seasonal Allergies: No (CAMACHO HAN) Surgeries History of Surgeries: Yes (COLON RESECTION WITH COLOSTOMY FOR COLON CANCER) Surgeries: Abdominal, Bowel Surgery, Gallbladder, Hysterectomy, Oophorectomy, Orthopedic, Thyroidectomy (CAMACHO HAN) Respiratory History of Respiratory Disorde: No (CAMACHO HAN) Cardiovascular History of Cardiac Disorders: Yes Cardiac Disorders: Hypertension (CAMACHO HAN) Neurological History of Neurological Disord: No (CAMACHO HAN) Reproductive System Hx Reproductive Disorders: 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, Menopausal (CAMACHO HAN) Genitourinary History of Genitourinary Disor: Yes Genitourinary Disorders: UTI-Chronic (CAMACHO HAN) Gastrointestinal History of Gastrointestinal Di: Yes (COLON CANCER--S/P RESECTION WITH COLOSTOMY ) (CAMACHO HAN) Musculoskeletal History of Musculoskeletal Dis: Yes (WALKS WITH WALKER) (CAMACHO HAN) Endocrine History of Endocrine Disorders: Yes (THYROIDECTOMY FOR BENIGN THYROID NODULES) Endocrine Disorders: Hypothyroidsim (CAMACHO HAN) Cancer History of Cancer: Yes Cancer: Rectal, Colon (CAMACHO HAN) Psychosocial History of Psychiatric Problem: No (CAMACHO HAN) Integumentary History of Skin or Integumenta: No (CAMACHO HAN) Blood Transfusions History of Blood Disorders: No (CAMACHO HAN) Physical Exam Vital Signs Vital Sign - Last 12Hours 09/08/17 05:07 Temp 96.1 Pulse 81 Resp 16 B/P (MAP) 140/80 Pulse Ox 89 O2 Delivery Room Air (JAGUAR PEREZ MD) Vital Signs Capillary Refill : (CAMACHO HNA) General Appearance: WD/WN, mild distress HEENT: PERRL/EOMI, normal ENT inspection, TMs normal, pharynx normal Neck: non-tender, full range of motion, supple, normal inspection Cardiovascular: normal peripheral pulses, regular rate, rhythm Respiratory: chest non-tender, lungs clear, normal breath sounds Peripheral Pulses: 2+ Dorsalis Pedis (R), 2+ Left Dors-Pedis (L), 2+ Radial Pulses (R), 2+ Radial Pulses (L) Gastrointestinal: normal bowel sounds, non tender, soft Extremities: non-tender, normal inspection, no calf tenderness, normal capillary refill, other (right leg deformity and tenderness over the proximal femur shaft with external rotation. 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, no motor/sensory deficits, alert, normal mood/affect, other (oriented to self only) Skin: normal color, warm/dry Lymphatic: no adenopathy (CAMACHO HAN) Elisha Coma Score Best Eye Response: (4) Open Spontaneously Best Verbal Response: (4) Confused Conversation Best Motor Response: (6) Obeys Commands [place] Total: 14 (CAMACHO HAN) Progress/Results/Core Measures Results/Orders Lab Results Laboratory Tests Test 09/08/17 05:14 09/08/17 05:25 Range/Units White Blood Count 11.3 H 4.3-11.0 10^3/uL Red Blood Count 3.90 L 4.35-5.85 10^6/uL Hemoglobin 11.6 11.5-16.0 G/DL Hematocrit 34 L 35-52 % Mean Corpuscular Volume 87 80-99 FL Mean Corpuscular Hemoglobin 30 25-34 PG Mean Corpuscular Hemoglobin Concent 34 32-36 G/DL Red Cell Distribution Width 13.7 10.0-14.5 % Platelet Count 350 130-400 10^3/uL Mean Platelet Volume 9.1 7.4-10.4 FL Neutrophils (%) (Auto) 87 H 42-75 % Lymphocytes (%) (Auto) 7 L 12-44 % Monocytes (%) (Auto) 5 0-12 % Eosinophils (%) (Auto) 1 0-10 % Basophils (%) (Auto) 0 0-10 % Neutrophils # (Auto) 9.8 H 1.8-7.8 X 10^3 Lymphocytes # (Auto) 0.8 L 1.0-4.0 X 10^3 Monocytes # (Auto) 0.6 0.0-1.0 X 10^3 Eosinophils # (Auto) 0.1 0.0-0.3 10^3/uL Basophils # (Auto) 0.1 0.0-0.1 10^3/uL Neutrophils % (Manual) 80 % Lymphocytes % (Manual) 7 % Monocytes % (Manual) 5 % Eosinophils % (Manual) 0 % Basophils % (Manual) 0 % Band Neutrophils 2 % Reactive Lymphocytes 6 % Poikilocytosis SLIGHT Sodium Level 138 135-145 MMOL/L Potassium Level 2.9 L 3.6-5.0 MMOL/L Chloride Level 103 98-107 MMOL/L Carbon Dioxide Level 23 21-32 MMOL/L Anion Gap 12 5-14 MMOL/L Blood Urea Nitrogen 15 7-18 MG/DL Creatinine 0.72 0.60-1.30 MG/DL Estimat Glomerular Filtration Rate > 60 BUN/Creatinine Ratio 21 Glucose Level 128 H 70-105 MG/DL Calcium Level 9.1 8.5-10.1 MG/DL Magnesium Level 1.5 L 1.8-2.4 MG/DL Total Bilirubin 0.7 0.1-1.0 MG/DL Aspartate Amino Transf (AST/SGOT) 16 5-34 U/L Alanine Aminotransferase (ALT/SGPT) 16 0-55 U/L Alkaline Phosphatase 132 40-136 U/L B-Type Natriuretic Peptide 67.1 <100.0 PG/ML Total Protein 5.9 L 6.4-8.2 GM/DL Albumin 3.5 3.2-4.5 GM/DL Urine Color YELLOW Urine Clarity CLEAR Urine pH 6 5-9 Urine Specific [place] 1.030 H 1.016-1.022 Urine Protein 2+ H NEGATIVE Urine Glucose (UA) NEGATIVE NEGATIVE Urine Ketones 1+ H NEGATIVE Urine Nitrite NEGATIVE NEGATIVE Urine Bilirubin 1+ H NEGATIVE Urine Urobilinogen 1 NORMAL MG/DL Urine Leukocyte Esterase 1+ H NEGATIVE Urine RBC (Auto) 1+ H NEGATIVE Urine RBC 0-2 /HPF Urine WBC 0-2 /HPF Urine Squamous Epithelial Cells RARE /HPF Urine Renal Epithelial Cells RARE /HPF Urine Crystals PRESENT H /LPF Urine Amorphous Sediment RARE RACHEL URATES H /LPF Urine Bacteria TRACE /HPF Urine Casts NONE /LPF Urine Mucus LARGE H /LPF Urine Culture Indicated NO (JAGUAR PEERZ MD) My Orders Orders - JAGUAR PEREZ MD Fentanyl Injection (Sublimaze Injection (09/08/17 06:31) (JAGUAR PEREZ MD) Medications Given in ED Current Medications Medications Dose Ordered Sig/Mary Route Start Time Stop Time Status Last Admin Dose Admin Sodium Chloride 500 ml @ 0 mls/hr Q0M ONCE IV 09/08/17 05:13 09/08/17 05:17 DC 09/08/17 06:31 500 MLS/HR (JAGUAR PEREZ MD) Vital Signs/I&O Vital Sign - Last 12Hours 09/08/17 05:07 Temp 96.1 Pulse 81 Resp 16 B/P (MAP) 140/80 Pulse Ox 89 O2 Delivery Room Air (JAGUAR PEREZ MD) Progress Note : Progress Note 0610: Assumed care from Dr. Han pending radiology studies. Patient has had several falls over the last week and has rib fractures and known lung cancer. Today has right hip fracture. Patiently currently being treated for urinary tract infection. Patient will need admission and orthopedic evaluation. 0700: I did discuss the case with Dr. Rivers. She accepts patient for admission. 0717: I did discuss the case with Dr. Steele, on-call for orthopedics. He will evaluate related to the hip fracture but will need medical clearance. All findings concerns discussed with patient and family who agree with plan. Repeat fentanyl 50 g IV given earlier for persistent pain. Patient has been on Keflex for possible urinary tract infection. I do not see that at this point. We will defer further treatment of this to primary doctor. (JAGUAR PEREZ MD) Diagnostic Imaging Diagonstic Imaging: Xray Plain Films/CT/US/NM/MRI: hip (right) Comments Closed right intertrochanteric femur fracture. Reviewed: Reviewed by Me Diagonstic Imaging: CT Plain Films/CT/US/NM/MRI: c-spine (without contrast), head Comments No intracranial hemorrhage, osseous abnormality of the cervical spine or cranium , mass effect, tumor. Reviewed: Reviewed Night [facility] Study, Reviewed by Me (CAMACHO HAN) Comments 2.4 cm right upper lobe mass noted on lung window correlating with known mass. (JAGUAR PEREZ MD) Transfer of Care Transfer of Care Time: 06:10 Care transferred to: Zahira (CAMACHO HAN) Departure Impression Impression: Primary Impression: Closed right hip fracture Qualified Codes: S72.001A - Fracture of unspecified part of neck of right femur, initial encounter for closed fracture Additional Impressions: Hypokalemia Hypomagnesemia Disposition: ADMITTED INPATIENT Condition: Stable Admissions Decision to Admit Reason: Admit from ER (Trauma) Decision to Admit/Date: Sep 08, 2017 Time/Decision to Admit Time: 05:24 (CAMACHO HAN) Departure-Patient Inst. Referrals: BJ RIVERS MD (PCP/Family) Primary Care Physician Copy Copies To 1: BJ RIVERS MD Copies To 2: ROBINSON TAVERA TITUS J Sep 08, 2017 05:18 JAGUAR PEREZ MD Sep 08, 2017 06:50
[2017-09-08 05:23] LABS: BASOPHILS # (AUTO) 0.1 10^3/uL (0.0-0.1); BASOPHILS % (AUTO) 0 % (0-10); EOSINOPHILS # (AUTO) 0.1 10^3/uL (0.0-0.3); EOSINOPHILS % (AUTO) 1 % (0-10); LYMPHOCYTES # (AUTO) 0.8 X 10^3 (1.0-4.0); LYMPHOCYTES % (AUTO) 7 % (12-44); MEAN CORPUSCULAR HEMOGLOBIN 30 PG (25-34); MEAN CORPUSCULAR HGB CONC 34 G/DL (32-36); MEAN CORPUSCULAR VOLUME 87 FL (80-99); MEAN PLATELET VOLUME 9.1 FL (7.4-10.4); MONOCYTES # (AUTO) 0.6 X 10^3 (0.0-1.0); MONOCYTES % (AUTO) 5 % (0-12); NEUTROPHILS # (AUTO) 9.8 X 10^3 (1.8-7.8); NEUTROPHILS % (AUTO) 87 % (42-75); PLATELET COUNT 350 10^3/uL (130-400); RED CELL DISTRIBUTION WIDTH 13.7 % (10.0-14.5); WHITE BLOOD COUNT 11.3 10^3/uL (4.3-11.0)
[2017-09-08 05:41] LABS: BILIRUBIN,URINE 1+ (NEGATIVE); KETONES,URINE 1+ (NEGATIVE); LEUKOCYTE ESTERASE ,URINE 1+ (NEGATIVE); NITRITE,URINE NEGATIVE (NEGATIVE); PH,URINE 6 (5-9); PROTEIN,URINE 2+ (NEGATIVE); UROBILINOGEN,URINE 1 MG/DL (NORMAL); WBC,URINE 0-2 /HPF
[2017-09-08 05:42] LABS: RENAL EPITHELIAL CELLS,URINE RARE /HPF; SQUAMOUS EPITHELIAL CELL,UR RARE /HPF
[2017-09-08 05:46] LABS: BAND NEUTROPHILS 2 %; BASOPHILS % (MANUAL) 0 %; EOSINOPHILS % (MANUAL) 0 %; LYMPHOCYTES % (MANUAL) 7 %; NEUTROPHILS % (MANUAL) 80 %; POIKILOCYTOSIS SLIGHT; REACTIVE LYMPHOCYTES 6 %
[2017-09-08 05:47] LABS: ALANINE AMINOTRANSFERASE 16 U/L (0-55); ALBUMIN 3.5 GM/DL (3.2-4.5); ANION GAP 12 MMOL/L (5-14); ASPARTATE AMINO TRANSFERASE 16 U/L (5-34); BILIRUBIN,TOTAL 0.7 MG/DL (0.1-1.0); BLOOD UREA NITROGEN 15 MG/DL (7-18); BUN/CREATININE RATIO 21; CALCIUM 9.1 MG/DL (8.5-10.1); CARBON DIOXIDE 23 MMOL/L (21-32); CHLORIDE 103 MMOL/L (98-107); CREATININE SERUM 0.72 MG/DL (0.60-1.30); GFR ESTIMATED > 60; GLUCOSE 128 MG/DL (70-105); MAGNESIUM 1.5 MG/DL (1.8-2.4); POTASSIUM 2.9 MMOL/L (3.6-5.0); SODIUM 138 MMOL/L (135-145); TOTAL PROTEIN 5.9 GM/DL (6.4-8.2)
[2017-09-08] MEDS ORDERED: SERT25TA5 PO (05:51)
[2017-09-08] MEDS ORDERED: CEPH500C PO (05:51)
[2017-09-08] MEDS ORDERED: fentaNYL INJECTION 100 MCG/2 ML AMP IVP STA (06:31)
[2017-09-08] MEDS: MAGNESIUM 1 GM/100 ML IVPB 100 ML IV SCH ×2 (06:32→08:16)
--- NOTE | 2017-09-08 07:02 | Diagnostic Imaging Report ---
INDICATION: Right hip injury pain COMPARISON: None. FINDINGS: 2 views of the right hip demonstrate comminuted minimally displaced intertrochanteric fracture of the right hip. There is no dislocation. IMPRESSION: Intertrochanteric fracture right hip. Dictated by: Dictated on workstation # [id number]
--- NOTE | 2017-09-08 07:03 | Diagnostic Imaging Report ---
INDICATION: Fall, hip fracture. COMPARISON: 09/15/2016. FINDINGS: Single view of the chest demonstrates stable cardiac enlargement without pulmonary edema. There is a round nodule in the right upper lobe. See dictated PET scan. There is no pneumothorax or large effusion. Osseous structures are age-appropriate. IMPRESSION: 1. Cardiac enlargement without pulmonary edema. 2. Lung nodule right upper lobe. Dictated by: Dictated on workstation # [id number]
--- NOTE | 2017-09-08 07:04 | Diagnostic Imaging Report ---
PROCEDURE: CT head and CT cervical spine without contrast. TECHNIQUE: Multiple contiguous axial images were obtained through the brain and cervical spine without the use of intravenous contrast. Sagittal and coronal reformations through the cervical spine were then performed. INDICATION: Trauma COMPARISON: CT 09/15/2016 FINDINGS: Age-related cerebral volume loss and chronic small vessel ischemic changes present. There was no midline shift or mass effect. There is no hemorrhage or evidence of acute ischemia. There is no skull fracture. Paranasal sinuses and mastoids are clear. IMPRESSION: No acute intracranial abnormalities. CT cervical spine: Alignment is normal. There is no subluxation or fracture. There is no osseous lesion. Degenerative changes are present. There is a known mass in the right upper lobe. IMPRESSION: 1. No traumatic malalignment or fracture. 2. Right upper lobe lung mass. Dictated by: Dictated on workstation # [id number]
--- OUTSIDE RECORDS SUMMARY | 2017-09-08 07:36 | XMS REPORT | Continuity of Care Document ---
Author Author [employer] Organization [facility] Address Unknown Phone Unavailable Care Team Providers Care Assistant Production Editor Name Role Phone [employer] Unavailable Unavailable Problems Medications Allergies, Adverse Reactions, Alerts Immunizations Results Vital Signs Encounters Location Location Details Encounter Type Encounter Number Reason For Visit Attending Provider ADM Date DC Date Status Source O [id number] AMBER TRIPLETT 05/25/2013 05/25/2013 Active [facility] O EMILEE FRAGA 09/29/2017 Active [facility] Procedures Plan of Care Social History Assessment and Plan Family History Value Date Source Advance Directives Order Name Results Value Date Source
--- OUTSIDE RECORDS SUMMARY | 2017-09-08 07:36 | XMS REPORT | Clinical Summary ---
Author Author [facility] Organization [facility] Address Unknown Phone Unavailable Care Team Providers Care Tool Builder Name Role Phone PCP Unavailable Source Comments Some departments are not documenting in the electronic medical record. If you do not see the information that you expected, contact Release of Information in the Health Information Management department at [phone] for further assistance in locating additional records.[facility] Allergies Active Allergy Reactions Severity Noted [...]
[2017-09-08] MEDS: POTASSIUM CL 10MEQ/50ML IVPB 50 ML IV SCH ×2 (07:37→09:32)
[2017-09-08 08:00] VITALS: BP 149/64
[2017-09-08] MEDS ORDERED: ONDANSETRON 4 MG/2 ML (SDV) Z0FRAN IV PRN (08:15)
[2017-09-08] MEDS: NS IV 1000 ML 1,000 ML IV SCH (08:16)
[2017-09-08] MEDS ORDERED: LEVO100T7 PO (08:22)
--- NOTE | 2017-09-08 08:38 | History & Physicial ---
History of Present Illness History of Present Illness Reason for visit/HPI PT IS AN 82 Y/O FEMALE WHO IS A NEW PATIENT TO MY PRACTICE. SHE HAS BEEN SEEN RECENTLY BY THE NURSE PRACTITIONER, TREATED FOR URINARY TRACT INFECTION WITH CLEARING, HOWEVER PT HAS BEEN INCREASINGLY CONFUSED AND FAMILY NOTES SEVERAL FALLS AT HOME RECENTLY. SHE FELL AT HOME TWICE YESTERDAY WITH THE LAST FALL RESULTING IN A RIGHT HIP FRACTURE. PT WAS BROUGHT TO THE HOSPITAL, EMERGENCY PHYSICIAN OBTAINED IMAGING WHICH SHOWED THE FOLLOWIN views of the right hip demonstrate comminuted minimally displaced intertrochanteric fracture of the right hip. There is no dislocation. Date of Admission Sep 08, 2017 at 07:23 Time Seen by Provider: 09:00 I consulted on this patient on 09/08/17 08:36 Attending Physician Bj Rivers MD Admitting Physician Bj Rivers MD Consult Allergies and Home Medications Allergies Coded Allergies: No Known Drug Allergies (Unverified , 12/13/11) Home Medications Aspirin 81 Mg Tablet.dr, 81 MG PO DAILY, (Reported) Cephalexin 500 Mg Capsule, 500 MG PO TID for 7 Days, (Reported) 7 DAY SUPPLY FILLED 09-02-17 Levothyroxine Sodium 100 Mcg Tablet, 100 MCG PO DAILY, (Reported) Losartan Potassium 50 Mg Tablet, 50 MG PO DAILY, (Reported) Naproxen Sodium 220 Mg Capsule, 440 MG PO DAILY, (Reported) TAKES 2 (220MG) CAPSULES Sertraline HCl 25 Mg Tablet, 25 MG PO DAILY, (Reported) Past Gjptzef-Mbeima-Jignmu Hx Patient Social History Marrital Status: Living Status: LIVES AT HOME WITH SPOUSE AND DAUGTHER (WHO IS CAREGIVER) Employed/Student: retired Alcohol Use: Denies Use Recreational Drug Use: No Smoking Status: Never a Smoker 2nd Hand Smoke Exposure: No Physical Abuse Screen: No Sexual Abuse: No Recent Foreign Travel: No Contact w/other who traveled: No Recent Hopitalizations: No Recent Infectious Disease Expo: No Immunizations Up To Date Date of Influenza Vaccine: Aug 24, 2011 Seasonal Allergies Seasonal Allergies: No Surgeries Yes (COLON RESECTION WITH COLOSTOMY FOR COLON CANCER) Abdominal, Bowel Surgery, Gallbladder, Hysterectomy, Oophorectomy, Orthopedic, Thyroidectomy Respiratory No Cardiovascular Yes Hypertension Neurological No Reproductive System : No Hx 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, Menopausal Genitourinary Yes UTI-Chronic Gastrointestinal Yes (COLON CANCER--S/P RESECTION WITH COLOSTOMY) Musculoskeletal Yes (WALKS WITH WALKER) Endocrine History of Endocrine Disorders: Yes (THYROIDECTOMY FOR BENIGN THYROID NODULES) Endocrine Disorders: Hypothyroidsim HEENT History of HEENT Disorders: No Cancer Yes Rectal, Colon Psychosocial History of Psychiatric Problem: Yes (DEMENTIA) Integumentary History of Skin or Integumenta: No Blood Transfusions History of Blood Disorders: No Reviewed Nursing Assessment Reviewed/Agree w Nursing PMH: Yes Family Medical History Significant Family History: Hypertension Constitutional: No chills, No fever, malaise, weakness EENTM: No vision loss, No hoarseness, No throat pain Respiratory: No cough, No dyspnea on exertion, No short of breath Cardiovascular: No chest pain, No palpitations Gastrointestinal: No abdominal pain, No nausea, No vomiting Genitourinary: frequency, incontinence Musculoskeletal: other (RIGHT HIP PAIN WITH INTERNALLY ROTATED RIGHT LOWER LEG) Skin: No lesions, No rash Psychiatric/Neurological: Denies Anxiety, Denies Depressed, Weakness All Other Systems Reviewed Negative Unless Noted: Yes Physical Exam Vital Signs Vital Sign - Last 12Hours 09/08/17 09/08/17 05:07 08:00 Temp 96.1 Pulse 81 Resp 16 B/P (MAP) 140/80 Pulse Ox 89 O2 Delivery Room Air O2 Flow Rate 2.00 Capillary Refill : Less Than 3 Seconds General Appearance: No Apparent Distress, WD/WN Eyes: Bilateral Eye Normal Inspection, Bilateral Eye PERRL, Bilateral Eye EOMI HEENT: PERRL/EOMI, Pharynx Normal Neck: Full Range of Motion, Supple Respiratory: Chest Non Tender, Lungs Clear, Normal Breath Sounds, No Accessory Muscle Use Cardiovascular: Regular Rate, Rhythm, No Edema Gastrointestinal: Normal Bowel Sounds, No Organomegaly, Non Tender, Soft Rectal: Deferred Back: Normal Inspection Extremity: Normal Capillary Refill, No Pedal Edema, Other (RIGHT LEG INTERNALLY ROTATED) Neurologic/Psychiatric: Alert, Disoriented x3 Skin: Normal Color, Warm/Dry Assessment/Plan Assessment and Plan RIGHT HIP MINIMALLY DISPLACED INTERTROCHANTERIC FRACTURE DEMENTIA HYPOTHYROID HYPERTENSION DEPRESSION RIGHT HIP MINIMALLY DISPLACED INTERTROCHANTERIC FRACTURE 2 views of the right hip demonstrate comminuted minimally displaced intertrochanteric fracture of the right hip. There is no dislocation. DEMENTIA - SUPPORTIVE CARE. HYPOTHYROID - WILL RESUME HOME MEDICATION ONCE PATIENT IS TAKING PO MEDICATION. HYPERTENSION - RESUME HOME MEDICATION - LOSARTAN - MONITOR BLOOD PRESSURE, ADJUST MEDICATION NEEDED. DEPRESSION - RESTART SERTRALINE. DVT PROPHYLAXIS WITH FOOT PUMP AND LOVENOX GI PROPHYLAXIS WITH PEPCID DISCUSSED WITH PT AND HER FAMILY THAT WAS AVAILABLE IN THE ROOM TODAY. MRS. MEJIA WILL NOT BE A GOOD CANDIDATE FOR INPATIENT REHAB IN THE HOSPITAL. I HAVE ADVISED THAT SHE NEEDS TO BE IN THE ASSISTED UPON DISCHARGE FOR PHYSICAL THERAPY ON DISCHARGE. I WOULD ANTICIPATE THAT IF SHE DOES WELL, THE FAMILY NEEDS TO LOOK AT ASSISTED LIVING ON DISCHARGE FROM THE ASSISTED. Problems: Admission Diagnosis RIGHT HIP MINIMALLY DISPLACED INTERTROCHANTERIC FRACTURE DEMENTIA HYPOTHYROID HYPERTENSION DEPRESSION BJ RIVERS MD Sep 08, 2017 08:38
[2017-09-08] MEDS ORDERED: POTASSIUM CL 10 MEQ/50 ML IVPB (PRE-MIX) IV ONE (10:30)
[2017-09-08] MEDS: fentaNYL INJECTION 100 MCG/2 ML AMP IV PRN ×3 (11:13→22:07)
[2017-09-08 12:00] VITALS: BP 114/62
[2017-09-08] MEDS: cefTRIAXone INJECTION 1,000 MG in NS (IVPB) 50 ML IV SCH (12:02)
[2017-09-08] MEDS ORDERED: INFLUENZA TRIvalent 2017-2018 0.5 ML/45 MCG SYR IM ONE (12:30)
[2017-09-08 16:00] VITALS: BP 126/60
[2017-09-08] MEDS: LACTOBACILLUS Acidoph/Bulgar (LACTINEX/FLORANEX) TAB PO SCH (17:06)
[2017-09-08 20:11] VITALS: BP 119/56
[2017-09-08] MEDS: FAMOTIDINE 20 MG (PEPCID) TABLET PO SCH (21:06)
[2017-09-09] VITALS: BP 144/83
[2017-09-09] MEDS: NS IV 1000 ML 1,000 ML IV SCH ×3 (03:32→17:22)
[2017-09-09 04:00] VITALS: BP 147/78
[2017-09-09] MEDS: LACTOBACILLUS Acidoph/Bulgar (LACTINEX/FLORANEX) TAB PO SCH ×3 (06:01→16:37)
[2017-09-09] MEDS: LEVOTHYROXINE 100 MCG (LEVOTHROID) TAB PO SCH (06:01)
[2017-09-09 06:22] LABS: BASOPHILS % (AUTO) 1 % (0-10); EOSINOPHILS # (AUTO) 0.1 10^3/uL (0.0-0.3); EOSINOPHILS % (AUTO) 1 % (0-10); LYMPHOCYTES # (AUTO) 0.5 X 10^3 (1.0-4.0); LYMPHOCYTES % (AUTO) 8 % (12-44); MEAN CORPUSCULAR HEMOGLOBIN 30 PG (25-34); MEAN CORPUSCULAR HGB CONC 34 G/DL (32-36); MEAN CORPUSCULAR VOLUME 89 FL (80-99); MEAN PLATELET VOLUME 9.4 FL (7.4-10.4); MONOCYTES # (AUTO) 0.5 X 10^3 (0.0-1.0); MONOCYTES % (AUTO) 7 % (0-12); NEUTROPHILS # (AUTO) 5.5 X 10^3 (1.8-7.8); NEUTROPHILS % (AUTO) 83 % (42-75); PLATELET COUNT 236 10^3/uL (130-400); RED BLOOD COUNT 3.12 10^6/uL (4.35-5.85); RED CELL DISTRIBUTION WIDTH 13.7 % (10.0-14.5); WHITE BLOOD COUNT 6.6 10^3/uL (4.3-11.0)
--- NOTE | 2017-09-09 06:24 | Consultation ---
History of Present Illness History of Present Illness Patient Consulted On(kike/time) 09/09/17 06:18 Date Seen by Provider: Sep 09, 2017 Time Seen by Provider: 06:18 Reason for Visit: Right hip fracture History of Present Illness Ms. Marrufo is pleasant 82 y/o female with h/o dementia, colon cancer and other comorbidities that presents with CC of Right hip pain secondary to sustaining a mechanical GLF onto her Right hip yesterday morning. She denies head trauma/LOC , denies neck pain. She also denies other injuries to her extremities. She is currently being treated for a UTI, recurrent. She denies f/c/ns or other constitutional symptoms. She denies antecedent Right hip/femur pain. She has no other musculoskeletal complaints today. Allergies and Home Medications Allergies Coded Allergies: chocolate flavor (Verified Allergy, Unknown, 09/08/17) looses voice Home Medications Aspirin 81 Mg Tablet.dr, 81 MG PO DAILY, (Reported) Cephalexin 500 Mg Capsule, 500 MG PO TID for 7 Days, (Reported) 7 DAY SUPPLY FILLED 09-02-17 Levothyroxine Sodium 100 Mcg Tablet, 100 MCG PO DAILY, (Reported) Losartan Potassium 50 Mg Tablet, 50 MG PO DAILY, (Reported) Naproxen Sodium 220 Mg Capsule, 440 MG PO DAILY, (Reported) TAKES 2 (220MG) CAPSULES Sertraline HCl 25 Mg Tablet, 25 MG PO DAILY, (Reported) Past Qrefxkr-Qmfzwc-Wozuwb Hx Patient Social History Alcohol Use: Denies Use Recreational Drug Use: No Smoking Status: Never a Smoker 2nd Hand Smoke Exposure: No Recent Foreign Travel: No Contact w/Someone Who Travel: No Recent Infectious Disease Expo: No Recent Hopitalizations: No Physical Abuse: No Sexual Abuse: No Mistreated: No Fear: No Immunizations Up To Date Date of Influenza Vaccine: Aug 24, 2011 Seasonal Allergies Seasonal Allergies: No Surgeries History of Surgeries: Yes (COLON RESECTION WITH COLOSTOMY FOR COLON CANCER) Surgeries: Abdominal, Bowel Surgery, Gallbladder, Hysterectomy, Oophorectomy, Orthopedic, Thyroidectomy Respiratory History of Respiratory Disorde: No Cardiovascular History of Cardiac Disorders: Yes Cardiac Disorders: Hypertension Neurological History of Neurological Disord: No Reproductive System : No Hx Reproductive Disorders: No [employer] PILOT History: Hysterectomy, Menopausal Genitourinary History of Genitourinary Disor: Yes Genitourinary Disorders: UTI-Chronic Gastrointestinal History of Gastrointestinal Di: Yes (COLON CANCER--S/P RESECTION WITH COLOSTOMY ) Musculoskeletal History of Musculoskeletal Dis: Yes (WALKS WITH WALKER) Endocrine History of Endocrine Disorders: Yes (THYROIDECTOMY FOR BENIGN THYROID NODULES) Endocrine Disorders: Hypothyroidsim HEENT History of HEENT Disorders: No Cancer History of Cancer: Yes Cancer: Rectal, Colon Psychosocial History of Psychiatric Problem: Yes (DEMENTIA) Suicide Risk Score: 0 Integumentary History of Skin or Integumenta: No Blood Transfusions History of Blood Disorders: No Reviewed Nursing Assessment Reviewed/Agree w Nursing PMH: Yes Family Medical History Significant Family History: Hypertension Review of Systems-General Constitutional: no symptoms reported EENTM: no symptoms reported Respiratory: no symptoms reported Cardiovascular: no symptoms reported Gastrointestinal: no symptoms reported Genitourinary: dysuria : No Musculoskeletal: other (Right hip pain) Skin: no symptoms reported Psychiatric/Neurological: Other (Dementia) All Other Systems Reviewed Negative Unless Noted: Yes Physical Exam-General Problems Physical Exam Vital Signs Vital Sign - Last 12Hours 09/08/17 09/08/17 05:07 08:00 Temp 96.1 Pulse 81 Resp 16 B/P (MAP) 140/80 Pulse Ox 89 O2 Delivery Room Air O2 Flow Rate 2.00 Capillary Refill : Less Than 3 SecondsLess Than 3 Seconds Eyes: Bilateral Eye PERRL, Bilateral Eye EOMI HEENT: PERRL/EOMI Neck: non-tender Respiratory: no respiratory distress, no accessory muscle use Peripheral Pulses: 2+ Dorsalis Pedis (R), 2+ Left Dors-Pedis (L) Gastrointestinal: non tender Extremities: no calf tenderness, other (motor/sensory function grossly intact b /l UEs/LEs; skin intact, no open wounds) 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 Pt has been optimized/cleared for surgery per the primary medicine team. Will proceed with surgery this morning. I have discussed the nature of the injury and recommended treatment with the patient and her family including the risks, benefits, potential complications and expected outcomes. All of their questions have been answered to their satisfaction. The patient's POA has given informed written consent to proceed as planned. Clinical Quality Measures DVT/VTE Risk/Contraindication: VTE Addressed: Yes VTE Present on Admission: No Risk Factor Score Per Nursin RFS Level Per Nursing on Admit: 4+=Very High SAMANTA CAM DO Sep 09, 2017 06:24
[2017-09-09 06:44] LABS: ALANINE AMINOTRANSFERASE 15 U/L (0-55); ALBUMIN 2.9 GM/DL (3.2-4.5); ANION GAP 6 MMOL/L (5-14); ASPARTATE AMINO TRANSFERASE 14 U/L (5-34); BILIRUBIN,TOTAL 0.6 MG/DL (0.1-1.0); BLOOD UREA NITROGEN 12 MG/DL (7-18); BUN/CREATININE RATIO 18; CALCIUM 8.2 MG/DL (8.5-10.1); CARBON DIOXIDE 24 MMOL/L (21-32); CHLORIDE 107 MMOL/L (98-107); CREATININE SERUM 0.67 MG/DL (0.60-1.30); GFR ESTIMATED > 60; GLUCOSE 108 MG/DL (70-105); SODIUM 137 MMOL/L (135-145)
[2017-09-09] MEDS ORDERED: fentaNYL INJECTION 100 MCG/2 ML AMP ONE ×2 (06:56→08:12)
[2017-09-09] MEDS ORDERED: LACTATED RINGERS 0 ML IV ONE (06:56)
[2017-09-09] MEDS ORDERED: SEVOFLURANE (ULTANE) 15 ML INHAL SOLN ONE ×7 (06:56→09:06)
[2017-09-09] MEDS ORDERED: MIDAZOLAM 2 MG/2 ML (VERSED) VIAL ONE (06:56)
[2017-09-09] MEDS ORDERED: LIDOCAINE PF 2% 5 ML (XYLOCAINE) VIAL ONE (06:56)
[2017-09-09] MEDS ORDERED: proPOfol 200 MG/20 ML (DIPRIVAN) VIAL IV ONE (06:56)
[2017-09-09] MEDS ORDERED: ceFAZolin 1,000 MG (ANCEF) VIAL ONE (07:14)
[2017-09-09] MEDS: LACTATED RINGERS 1,000 ML IV PRN ×2 (07:30→08:32)
--- NOTE | 2017-09-09 08:45 | Progress Note (SOAP) ---
Subjective Date Seen by Provider: Sep 09, 2017 Time Seen by Provider: 09:46 Subjective/Events-last exam ATTEMPTED TO SEE PT THIS MORNING - SHE WAS IN SURGERY - WILL RE-EVAL PT LATER TODAY AFTER SHE IS BACK FROM SURGERY. pt seen in recovery post-operatively. pt was groggy - but able to tell me that she did not feel bad - she denied pain in her hip. Review of Systems General: No Chills, Fatigue Pulmonary: No Dyspnea, No Cough Cardiovascular: No: Chest Pain Gastrointestinal: No: Nausea, Abdominal Pain Neurological: Confusion (chronic) Objective Exam Vital Signs Date Time Temp Pulse Resp B/P (MAP) Pulse Ox O2 Delivery O2 Flow Rate FiO2 09/09/17 04:00 98.4 85 19 147/78 97 Nasal Cannula 2.00 09/09/17 00:00 98.4 85 16 144/83 96 Nasal Cannula 2.00 09/08/17 20:11 98.1 83 16 119/56 93 Nasal Cannula 2.00 09/08/17 20:05 Nasal Cannula 2.00 09/08/17 16:00 97.9 80 16 126/60 96 Nasal Cannula 2.00 09/08/17 12:00 97.6 71 16 114/62 95 Nasal Cannula 2.00 I & O 09/10/17 07:00 Intake Total 1000 ml Balance 1000 ml Capillary Refill : Less Than 3 SecondsLess Than 3 Seconds General Appearance: WD/WN HEENT: PERRL/EOMI Neck: Supple Respiratory: Chest Non Tender, Lungs Clear, Normal Breath Sounds Cardiovascular: Regular Rate, Rhythm, No Edema Gastrointestinal: normal bowel sounds, non tender, soft Neurologic/Psychiatric: Other (groggy - but arousable, opens eye to voice) Skin: Other (right hip with operative dressing in place) Results Lab Laboratory Tests 09/09/17 06:07: White Blood Count 6.6, Red Blood Count 3.12L, Hemoglobin 9.4L, Hematocrit 28L, Mean Corpuscular Volume 89, Mean Corpuscular Hemoglobin 30, Mean Corpuscular Hemoglobin Concent 34, Red Cell Distribution Width 13.7, Platelet Count 236, Mean Platelet Volume 9.4, Neutrophils (%) (Auto) 83H, Lymphocytes (%) (Auto) 8L , Monocytes (%) (Auto) 7, Eosinophils (%) (Auto) 1, Basophils (%) (Auto) 1, Neutrophils # (Auto) 5.5, Lymphocytes # (Auto) 0.5L, Monocytes # (Auto) 0.5, Eosinophils # (Auto) 0.1, Basophils # (Auto) 0.0, Sodium Level 137, Potassium Level 3.0L, Chloride Level 107, Carbon Dioxide Level 24, Anion Gap 6, Blood Urea Nitrogen 12, Creatinine 0.67, Estimat Glomerular Filtration Rate > 60, BUN/ Creatinine Ratio 18, Glucose Level 108H, Calcium Level 8.2L, Total Bilirubin 0.6 , Aspartate Amino Transf (AST/SGOT) 14, Alanine Aminotransferase (ALT/SGPT) 15, Alkaline Phosphatase 99, Total Protein 5.0L, Albumin 2.9L Assessment/Plan Assessment/Plan Assess & Plan/Chief Complaint RIGHT HIP MINIMALLY DISPLACED INTERTROCHANTERIC FRACTURE DEMENTIA HYPOTHYROID HYPERTENSION DEPRESSION ANEMIA RIGHT HIP MINIMALLY DISPLACED INTERTROCHANTERIC FRACTURE - immediately post op today 09/09/17 2 views of the right hip demonstrate comminuted minimally displaced intertrochanteric fracture of the right hip. There is no dislocation. DEMENTIA - SUPPORTIVE CARE. HYPOTHYROID - WILL RESUME HOME MEDICATION ONCE PATIENT IS TAKING PO MEDICATION. HYPERTENSION - RESUMED HOME MEDICATION - [place] - MONITOR BLOOD PRESSURE, ADJUST MEDICATION NEEDED. DEPRESSION - RESTARTED SERTRALINE. ANEMIA - MONITOR LABS IN MORNING - TRANSFUSE IF HGB LESS THAN 7. DVT PROPHYLAXIS WITH FOOT PUMP AND LOVENOX GI PROPHYLAXIS WITH PEPCID DISCUSSED WITH PT AND GRANDDAUGHTER ON 09/08/17 - . MRS. MEJIA WILL NOT BE A GOOD CANDIDATE FOR INPATIENT REHAB IN THE HOSPITAL. I HAVE ADVISED THAT SHE NEEDS TO BE IN THE [facility] UPON DISCHARGE FOR PHYSICAL THERAPY ON DISCHARGE. I WOULD ANTICIPATE THAT IF SHE DOES WELL, THE FAMILY NEEDS TO LOOK AT ASSISTED LIVING ON DISCHARGE FROM THE [facility]. Clinical Quality Measures DVT/VTE Risk/Contraindication: VTE Addressed: Yes VTE Present on Admission: No Risk Factor Score Per Nursin RFS Level Per Nursing on Admit: 4+=Very High BJ LOPEZ MD Sep 09, 2017 08:45
[2017-09-09] MEDS ORDERED: ceFAZolin INJECTION 1 MG in NS (IVPB) 50 ML IV SCH ×2 (09:15→15:00)
--- NOTE | 2017-09-09 09:25 | Operative Report ---
Operative Report Date of Procedure/Surgery Sep 09, 2017 Surgeon (s) SAMANTA CAM DO Admissions Evaluator (s): Loiue Pierre, RITA Post-Operative Diagnosis Displaced, closed intertrochanteric fracture Right proximal femur Procedure Performed Closed reduction, placement of cephalomedullary nail Right femur. Description of Procedure Anesthesia Type: General Estimated blood loss (mL): 100 Specimen(s) collected/removed None Description of the Procedure Closed reduction, placement of cephalomedullary nail Right femur. Findings of the Procedure Displaced, unstable 3-part intertrochanteric fracture Right proximal femur Allergies and Home Medications Allergies Coded Allergies: chocolate flavor (Verified Allergy, Unknown, 09/08/17) looses voice Home Medications Aspirin 81 Mg Tablet.dr, 81 MG PO DAILY, (Reported) Cephalexin 500 Mg Capsule, 500 MG PO TID for 7 Days, (Reported) 7 DAY SUPPLY FILLED 09-02-17 Levothyroxine Sodium 100 Mcg Tablet, 100 MCG PO DAILY, (Reported) Losartan Potassium 50 Mg Tablet, 50 MG PO DAILY, (Reported) Naproxen Sodium 220 Mg Capsule, 440 MG PO DAILY, (Reported) TAKES 2 (220MG) CAPSULES Sertraline HCl 25 Mg Tablet, 25 MG PO DAILY, (Reported) SAMANTA CAM DO Sep 09, 2017 09:25
--- NOTE | 2017-09-09 10:19 | Occ Therapy Progress Note ---
Therapy Progress Note Order received for OT eval and treat. Chart review completed. Checked on pt this morning. Pt down in OR for repair of right hip fracture. Will attempt to complete OT evaluation tomorrow. Discussed with HERMINIA. PIPPA MILLER OT Sep 09, 2017 10:19
--- NOTE | 2017-09-09 10:30 | Diagnostic Imaging Report ---
Intraoperative views of the right hip. INDICATION: Internal fixation of the right hip. 2 minutes and 30 seconds of fluoroscopy time is provided. IMPRESSION: Interlocked intramedullary nail of the right femur is placed for fixation of right intertrochanteric fracture which appears in good alignment. Dictated by: Dictated on workstation # [id number]
[2017-09-09] MEDS: cefTRIAXone INJECTION 1,000 MG in NS (IVPB) 50 ML IV SCH (10:44)
[2017-09-09] MEDS: LOSARTAN 50 MG (COZAAR) TAB PO SCH (10:46)
[2017-09-09] MEDS: SERTRALINE 50 MG (ZOLOFT) TABLET PO SCH (10:46)
[2017-09-09] MEDS: FAMOTIDINE 20 MG (PEPCID) TABLET PO SCH ×2 (10:46→21:31)
[2017-09-09 10:55] VITALS: BP 131/80
[2017-09-09] MEDS: fentaNYL INJECTION 100 MCG/2 ML AMP IV PRN ×5 (11:46→22:04)
[2017-09-09 12:00] VITALS: BP 118/70
--- NOTE | 2017-09-09 12:45 | OPERATIVE REPORT ---
DATE OF SERVICE: 09/09/2017 PREOPERATIVE DIAGNOSIS: Displaced, closed, unstable 3-part intertrochanteric fracture, right proximal femur. POSTOPERATIVE DIAGNOSIS: Displaced, closed, unstable 3-part intertrochanteric fracture, right proximal femur. PROCEDURE: Closed reduction followed by placement of a cephalomedullary nail, right femur. IMPLANTS USED: Synthes long TFN size 360 mm in length x 11 mm in diameter with a 105 mm helical blade, proximal angle 130 degrees. ATTENDING SURGEON: Dr. Samanta Cam PEST CONTROL APPLICATOR: Louie Pierre PA-C ANESTHESIA: General. ESTIMATED BLOOD LOSS: 100 mL. COMPLICATIONS: None. SPECIMENS: None. DRAINS: None. BRIEF HISTORY AND INDICATIONS: The patient is a very pleasant 82-year-old female with a history of dementia as well as multiple other medical comorbidities that presented to the Emergency Department at [facility] on 09/08/2017 with chief complaint of right hip pain secondary to sustaining a mechanical ground level fall, landing onto her right hip. Upon presentation to the Emergency Department plain radiographs of the patient's right femur and pelvis demonstrated a displaced intertrochanteric fracture of the right proximal femur. The patient was admitted to the medicine service and orthopedic service was consulted for definitive management of her injury. The patient's sister was acting as the main historian when history was taken. Per the historian, the patient did not sustain any other injury secondary to this fall. The patient did not complaining of any head or neck pain nor was there any history of loss of consciousness. The patient did deny having sustained any other injuries to her extremities and she had no other musculoskeletal complaints besides severe right hip pain and an inability to ambulate or bear weight on her right lower extremity. After discussing the treatment options with the patient and her family, which included nonoperative and operative management, it was stressed that operative management is recommended as to stabilize the fracture and avoid complications of prolonged recumbency. After discussing the risks, benefits, potential complications and expected outcomes of the planned operative procedure, the patient's POA gave informed written consent after all of her questions were answered to her satisfaction. Risks discussed included significant bleeding, infection, failure of the hardware necessitating secondary surgical procedures, damage to surrounding neurovascular structures as well as significant reactions to anesthesia. PROCEDURE NOTE: After correctly identifying the patient in the preoperative holding area and after her right hip was appropriately marked, she was transferred to the operating room. Once in the operating room, the patient had successful induction of general endotracheal anesthesia and she was transferred to a standard radiolucent fracture table and placed in the supine position. All bony prominences were meticulously padded. The patient's right lower extremity was secured into the traction device of the table and was well padded. The well leg was placed in a scissor position. I then performed a closed reduction maneuver of the left femur and verified acceptability of the reduction with preoperative AP and lateral fluoroscopic C-arm images. The patient's right lower extremity was then prepped and draped in routine sterile orthopedic fashion. Prior to beginning the case, we completed an operating timeout with all parties involved in the case and agreement and verified appropriate infusion of prophylactic antibiotics. Using a sterile marking pen, I marked out my planned incision on the lateral aspect of the right hip. I then used a 10 blade scalpel to incise the skin and subcutaneous tissue approximately 2 fingerbreadths proximal to the tip of the greater trochanter. A blunt Metzenbaum scissor was then used to dissect through the fascia of the gluteus gely giving me access to the tip of the greater trochanter. Under fluoroscopic guidance, the guidepin from the Synthes TFN system was introduced into the proximal femur and advanced to the appropriate position just distal to the lesser trochanter. Opening reamer was then used over the guidepin to prepare the ship pilot hole in the proximal femur for the nail. The ball-tipped guidewire was then introduced into the femur and placed distally in the center-center position of the distal femur under fluoroscopic guidance. AP and lateral views of the C-arm were used to confirm that the guidewire was in the appropriate position within the medullary canal of the femur both proximally and distally. We then measured the length of the nail with the standard measuring device, which gave us a 360 mm, therefore the 360 mm in length nail was used. The nail was placed over the guidewire and introduced into the femur across the fracture site with light taps of the mallet to the appropriate position both proximally and distally as confirmed with AP and lateral C-arm views and fluoroscopic guidance. The ball-tipped guidewire was then removed and then the guidepin through the lateral aiming arm for the cephalomedullary helical blade was introduced into the proximal femur through the external aiming arm and completed under fluoroscopic guidance and placed into the center-center position of the femoral head. We then measured for the length of the helical blade, the cortical reamer was used to open the lateral cortex of the femur and then the step reamer was used to prepare the path of the helical blade. The helical blade was then introduced over the guidepin to the appropriate center-center position of the femoral head and neck with light taps of the mallet to give us an acceptable tipped apex distance as confirmed on AP and lateral C-arm views of the proximal femur. The nail was then locked proximally, aiming arm and external jig was removed, and then we locked the nail distally with 2 locking bolts using the perfect wainwright fluoroscopic technique. Final C-arm images both in the lateral and AP planes both proximally and distally confirmed acceptable reduction and alignment of the fracture as well as acceptable position of all the hardware. The incisions were then irrigated with copious amounts of sterile saline followed by standard closure, which included 0 Vicryl for the deep fascia, 2-0 Vicryl for the subcutaneous tissue and Monocryl for the skin. The patient had sterile dressings applied and then was awakened and extubated in the operating room without complications. She was transferred to the PACU in stable condition. The patient tolerated the procedure quite well. All counts were correct at the end of the case. Job ID: [id number] DocumentID: [id number] Dictated Date: 09/09/2017 09:59:17 Channel Director Date: 09/09/2017 12:44:45 Dictated By: SAMANTA CAM
--- NOTE | 2017-09-09 14:27 | Physical Therapy Progress Note ---
Therapy Progress Note PT has attempted x 2 for evaluation. Patient continues to be heavily sedated and unable to wake to safely perform. PT will evaluate in a.m. if patient continues to remain sedated. DARRYL JONES PT Sep 09, 2017 14:27
[2017-09-09] MEDS: ceFAZolin INJECTION 1,000 MG in NS (IVPB) 50 ML IV SCH ×2 (15:35→22:44)
[2017-09-09 16:00] VITALS: BP 140/66
[2017-09-09 20:00] VITALS: BP 156/76
[2017-09-09] MEDS: ENOXAPARIN 40 MG/0.4 ML (LOVENOX) SYR SC SCH (21:31)
[2017-09-10] VITALS (12 sets, daily range): BP systolic 95–156; BP diastolic 54–73
[2017-09-10] MEDS: NS IV 1000 ML 1,000 ML IV SCH ×5 (00:15→19:20)
[2017-09-10] MEDS: fentaNYL INJECTION 100 MCG/2 ML AMP IV PRN ×5 (00:46→18:43)
[2017-09-10 06:09] LABS: MEAN PLATELET VOLUME 9.6 FL (7.4-10.4); RED BLOOD COUNT 2.55 10^6/uL (4.35-5.85); RED CELL DISTRIBUTION WIDTH 13.5 % (10.0-14.5); WHITE BLOOD COUNT 6.2 10^3/uL (4.3-11.0)
[2017-09-10] MEDS: LEVOTHYROXINE 100 MCG (LEVOTHROID) TAB PO SCH (06:11)
[2017-09-10] MEDS: LACTOBACILLUS Acidoph/Bulgar (LACTINEX/FLORANEX) TAB PO SCH ×3 (06:11→16:40)
[2017-09-10 06:25] LABS: ANION GAP 8 MMOL/L (5-14); BLOOD UREA NITROGEN 11 MG/DL (7-18); BUN/CREATININE RATIO 16; CARBON DIOXIDE 22 MMOL/L (21-32); CHLORIDE 109 MMOL/L (98-107); CREATININE SERUM 0.68 MG/DL (0.60-1.30); GFR ESTIMATED > 60; GLUCOSE 115 MG/DL (70-105); MAGNESIUM 1.4 MG/DL (1.8-2.4); POTASSIUM 3.3 MMOL/L (3.6-5.0); SODIUM 139 MMOL/L (135-145)
[2017-09-10] MEDS: ceFAZolin INJECTION 1,000 MG in NS (IVPB) 50 ML IV SCH (06:32)
--- NOTE | 2017-09-10 07:57 | Progress Note (SOAP) ---
Subjective Date Seen by Provider: Sep 10, 2017 Time Seen by Provider: 07:30 Subjective/Events-last exam Pt NIDIA, resting comfortably, remains confused but apparently at baseline mentation, responds to questions, participates in exam; pain controlled, no overnight events to report, no complaints. Objective Exam Vital Signs Date Time Temp Pulse Resp B/P (MAP) Pulse Ox O2 Delivery O2 Flow Rate FiO2 09/10/17 04:00 99.6 91 19 135/64 94 Nasal Cannula 3.00 09/10/17 00:00 98.9 85 18 95/60 97 Nasal Cannula 4.50 09/09/17 22:37 Nasal Cannula 2.00 09/09/17 20:00 98.9 84 18 156/76 96 Nasal Cannula 2.00 09/09/17 19:50 Nasal Cannula 3.00 09/09/17 16:00 98.9 87 20 140/66 96 Nasal Cannula 2.00 09/09/17 14:00 Nasal Cannula 2.00 09/09/17 12:00 98.4 95 18 118/70 95 Nasal Cannula 2.00 09/09/17 10:55 97.3 93 16 131/80 95 Nasal Cannula 2.00 09/09/17 10:30 Nasal Cannula 3.00 Capillary Refill : Less Than 3 SecondsLess Than 3 Seconds General Appearance: No Apparent Distress Respiratory: No Accessory Muscle Use, No Respiratory Distress Cardiovascular: Normal Peripheral Pulses Gastrointestinal: soft Extremity: Other (RLE: dressings c/d/i, thigh compartments soft/compressible, foot well perfused, motor/sensation grossly intact.) Results Lab Laboratory Tests 09/10/17 05:56: White Blood Count 6.2, Red Blood Count 2.55L, Hemoglobin 7.6L, Hematocrit 23L, Mean Corpuscular Volume 90, Mean Corpuscular Hemoglobin 30, Mean Corpuscular Hemoglobin Concent 33, Red Cell Distribution Width 13.5, Platelet Count 199, Mean Platelet Volume 9.6, Sodium Level 139, Potassium Level 3.3L, Chloride Level 109H, Carbon Dioxide Level 22, Anion Gap 8, Blood Urea Nitrogen 11, Creatinine 0.68, Estimat Glomerular Filtration Rate > 60, BUN/Creatinine Ratio 16, Glucose Level 115H, Calcium Level 8.0L, Magnesium Level 1.4L Assessment/Plan Assessment/Plan Assess & Plan/Chief Complaint 82 y/o female s/p IMN Right femur for unstable IT fx, POD 1 Orthopedically stable Daily PT/OT for mobilization OOB/ADLs, WBAT RLE Pain control Dressing change POD 2 and prn Lovenox for VTE prophylaxis D/C mott Acute post-op blood loss anemia with Hb at 7.6, some hypotension/mild tachy would suggest symptomatic therefore recommend transfusion prbcs D/C planning: pt has bed at SNF for Tuesday, anticipate d/c to SNF on Tuesday. Clinical Quality Measures DVT/VTE Risk/Contraindication: VTE Addressed: Yes VTE Present on Admission: No Risk Factor Score Per Nursin RFS Level Per Nursing on Admit: 4+=Very High SAMANTA CAM DO Sep 10, 2017 07:57
[2017-09-10] MEDS ORDERED: NS IV 500 ML 500 ML IV SCH (08:07)
--- NOTE | 2017-09-10 09:44 | Physical Therapy Evaluation ---
PT Evaluation-General Medical Diagnosis Admission Date Sep 08, 2017 at 07:23 Medical Diagnosis: (R) hip fracture Onset Date: Sep 09, 2017 Therapy Diagnosis Therapy Diagnosis: abnormality of gait Height/Weight Height (Feet): 5 Height (Inches): 7.00 Weight (Pounds): 171 Weight (Ounces): 0.0 Precautions Precautions/Isolations: Fall Prevention, Standard Precautions Weight Bear Status Right Lower Extremity: Right Weight Bearing/Tolerated Left Lower Extremity: Left Full Weight Bearing Referral Physician: Cedric Reason for Referral: Evaluation/Treatment Medical History Pertinent Medical History: Dementia Social History Home: Single Level Current Living Status: Spouse Prior/Core FIM Prior Level of Function Functional [place] Measure 0=Not Assessed/NA 4=Minimal Assistance 1=Total Assistance 5=Supervision or Setup 2=Maximal Assistance 6=Modified [place] 3=Moderate Assistance 7=Complete [place] Bed Mobility: 7 Transfers (B,C,W/C) (FIM): 7 Gait: 6 PT Evaluation-Current Subjective Patient is very confused. Pain Comment: unable to rate secondary to confusion Objective Attachments: Drew Catheter, IV ROM/Strength ROM Lower Extremities 10 degrees of PROM in (R) hip flexion and abduction Strength Lower Extremities unable to accurately test secondary to confusion Transfers Functional [place] Measure 0=Not Assessed/NA 4=Minimal Assistance 1=Total Assistance 5=Supervision or Setup 2=Maximal Assistance 6=Modified [place] 3=Moderate Assistance 7=Complete [place] Transfers (B, C, W/C) (FIM): 1 Scootin Rollin Supine to/from Sit: 1 Assessment/Needs Rehab Potential: Guarded PT Short Term Goals Short Term Goals Time Frame: Sep 17, 2017 Transfers (B,C,W/C) (FIM): 2 PT Water Purifier Operator Goals Water Purifier Operator Goals PT Water Purifier Operator Goals Time Frame: Sep 24, 2017 Transfers (B,C,W/C) (FIM): 3 Gait (FIM): 3 Gait distance (FIM): 1=up to 49 ft Distance: 10' Gait Level of Assist: 3 Gait Assistive Device: FWW PT Plan Problem List Problem List: Activity Tolerance, Safety, Balance, Gait, Transfer, Bed Mobility , ROM Treatment/Plan Treatment Plan: Continue Plan of Care Treatment Plan: Bed Mobility, Education, Functional Activity [place], Functional Strength, Group Therapy, Gait, Safety, Therapeutic Exercise, Transfers Treatment Duration: Sep 24, 2017 Frequency: 6 times per week Estimated Hrs Per Day: .5 hour per day Patient and/or Family Agrees t: Yes Discharge Recommendations Therapy D/C Recommendations: [facility] (TCU/[facility]) Time/GCodes Time In: 920 Time Out: 940 Total Billed Treatment Time: 20 Total Billed Treatment 1, EV SERGE C G Codes Necessary: No ASHLEY NEFF PT Sep 10, 2017 09:44
[2017-09-10] MEDS: cefTRIAXone INJECTION 1,000 MG in NS (IVPB) 50 ML IV SCH (09:45)
[2017-09-10] MEDS: LOSARTAN 50 MG (COZAAR) TAB PO SCH (09:49)
[2017-09-10] MEDS: FAMOTIDINE 20 MG (PEPCID) TABLET PO SCH ×2 (09:49→20:03)
[2017-09-10] MEDS: SERTRALINE 50 MG (ZOLOFT) TABLET PO SCH (09:49)
[2017-09-10] MEDS: ENOXAPARIN 30 MG/0.3 ML (LOVENOX) SYR SC SCH (09:50)
--- NOTE | 2017-09-10 11:25 | Occ Therapy Progress Note ---
Therapy Progress Note Patient seen at bedside but not able to participate in the OT assessment as she is still confused from medications and is in pain. Niece visited with this therapist about home situation. Appears the patient is but her is unable to care for her so a sister is also in the home which is not working well. The patient required assist with self care prior to falling and fracturing her right hip. Surgery, yesterday, was for 2 pins to be placed. She has suffered multiple falls prior to this recent one. She is ambulatory with a walker at home, but she does not use it as she should. Will attempt to complete full assessment on Tuesday as appropriate. The niece, also the POA, is looking for placement in [facility] and has made arrangements. Charges: Visit only. KAREY ROSENBERG OT Sep 10, 2017 11:25
--- NOTE | 2017-09-10 12:44 | Progress Note-Hospitalist ---
Standard Progress Note Progress Notes/Assess & Plan Date Seen 09/10/17 Time Seen by Provider: 12:39 Diagnosis The patient is an 82-year-old white female patient of Dr. Parmar. I met her several weeks ago while on an ER visit. She fell on 09/08 and suffered an intertrochanteric fracture of her right hip as well as several rib fractures. She had operative repair on 09/09. A family member speaks for her as she made no attempt to answer any of my questions. The family reports that she seems to be troubled by pain in her neck. This is not new and preceded her hip fracture. In addition she has a colostomy following a previous colon resection for malignancy. She has not had bowel activities since prior to the surgery. Physical exam: We have an elderly white female who focuses on me but does not speak. Lungs are clear to auscultation. CV is regular without murmur. There is some tenderness to palpation at the right posterior base of the neck. It is noted that she has pulled her operative dressing off and is lying in the bed beside her. Impression: Day 1 postop repair intertrochanteric fracture right hip. 2.previous history of colon cancer with resection and colostomy. 3.history of frequent urinary tract infections. 4.functional status suggesting likely requirement of custodial placement. Plan: Add Voltaren cream for neck pain. MiraLAX daily for bowel function. Labs Laboratory Tests 09/09/17 06:07 09/10/17 05:56 RADHA HALL MD Sep 10, 2017 12:44
[2017-09-10] MEDS: DICLOFENAC 1% GEL 100 GM (VOLTAREN) TUBE TOP SCH ×3 (14:29→20:04)
--- NOTE | 2017-09-10 15:07 | Anesthesia-General Post-Op ---
General Patient Condition Mental Status/LOC: Same as Preop Cardiovascular: Satisfactory Nausea/Vomiting: Absent Respiratory: Satisfactory Pain: Controlled Complications: Absent Post Op Complications Complications None Follow Up Care/Instructions Patient Instructions None needed. Anesthesia/Patient Condition Patient Condition Patient is doing well, no complaints, stable vital signs, no apparent adverse anesthesia problems. No complications reported per nursing. MACKENZIE PERALTA CRNA Sep 10, 2017 15:07
[2017-09-10] MEDS: POLYETHYLENE GLYCOL 17 GM (MIRALAX) PACK PO SCH (20:03)
[2017-09-10] MEDS: ENOXAPARIN 40 MG/0.4 ML (LOVENOX) SYR SC SCH (20:03)
[2017-09-11] VITALS: BP 129/64
[2017-09-11] MEDS: NS IV 1000 ML 1,000 ML IV SCH ×2 (02:52→09:52)
[2017-09-11 04:00] VITALS: BP 140/73
[2017-09-11 05:25] LABS: MEAN PLATELET VOLUME 10.3 FL (7.4-10.4); RED BLOOD COUNT 3.26 10^6/uL (4.35-5.85); RED CELL DISTRIBUTION WIDTH 13.6 % (10.0-14.5); WHITE BLOOD COUNT 7.2 10^3/uL (4.3-11.0)
[2017-09-11 05:40] LABS: ANION GAP 11 MMOL/L (5-14); BLOOD UREA NITROGEN 9 MG/DL (7-18); BUN/CREATININE RATIO 17; CARBON DIOXIDE 19 MMOL/L (21-32); CHLORIDE 109 MMOL/L (98-107); CREATININE SERUM 0.53 MG/DL (0.60-1.30); GFR ESTIMATED > 60; GLUCOSE 117 MG/DL (70-105); POTASSIUM 3.2 MMOL/L (3.6-5.0); SODIUM 139 MMOL/L (135-145)
[2017-09-11] MEDS: LACTOBACILLUS Acidoph/Bulgar (LACTINEX/FLORANEX) TAB PO SCH ×4 (05:55→18:28)
[2017-09-11] MEDS: LEVOTHYROXINE 100 MCG (LEVOTHROID) TAB PO SCH ×2 (05:55→06:38)
[2017-09-11] MEDS: fentaNYL INJECTION 100 MCG/2 ML AMP IV PRN ×2 (07:34)
[2017-09-11] MEDS: LOSARTAN 50 MG (COZAAR) TAB PO SCH (07:34)
[2017-09-11] MEDS: ENOXAPARIN 30 MG/0.3 ML (LOVENOX) SYR SC SCH (07:34)
[2017-09-11] MEDS: FAMOTIDINE 20 MG (PEPCID) TABLET PO SCH ×2 (07:34→20:23)
[2017-09-11] MEDS: SERTRALINE 50 MG (ZOLOFT) TABLET PO SCH (07:35)
[2017-09-11] MEDS: DICLOFENAC 1% GEL 100 GM (VOLTAREN) TUBE TOP SCH ×4 (07:35→20:24)
[2017-09-11] MEDS: cefTRIAXone INJECTION 1,000 MG in NS (IVPB) 50 ML IV SCH (07:35)
[2017-09-11 08:00] VITALS: BP 183/88
--- NOTE | 2017-09-11 09:48 | Physical Therapy Daily Note ---
PT Daily Note-Current Subjective Patient in bed pre tx, is very confused, cannot communicate appropriately. Patient does not voice complaints of pain but she does show signs of it during treatment. Appearance Patient in recliner at bedside post tx with nurse call, phone, tray, family in the room. Mental Status Patient Orientation: Confused Attachments: Colostomy/Ileostomy, IV Transfers Functional [place] Measure 0=Not Assessed/NA 4=Minimal Assistance 1=Total Assistance 5=Supervision or Setup 2=Maximal Assistance 6=Modified [place] 3=Moderate Assistance 7=Complete IndependenceIRFPAI Quality Coding Scale 6 Independent with activity with or without an assistive device 5 Patient requires set up or clean up by helper. Patient completes activity by themselves 4 Supervision or touching assist (CGA). [place] provide cues , steadying assist 3 The helper provides less than half the effort to complete the activity 2 The helper provides more than half the effort to complete the activity 1 Dependent. The helper does all the effort to complete an activity 7 Patient refused to complete or attempt activity 9 The patient did not perform the activity before the current illness or injury 88 Not attempted due to Medical conditions or safety concerns Transfers (B, C, W/C) (FIM): 1 Scootin Rollin Supine to/from Sit: 1 Sit to/from Stand: 3 Bed to/from Chair: 3 Patient does not follow directions for safety and hand placement , she will just grab onto therapists arms. Weight Bearing Right Lower Extremity: Right Weight Bearing/Tolerated Left Lower Extremity: Left Full Weight Bearing Exercises Seated Therapy Exercises: Ankle pumps, Long arc quads Seated Reps: 10 Patient was able to complete a few exercises but she could not do many due to confusion. Treatments bed mobility and transfers, functional strengthening Assessment Current Status: Fair Progress patient was able to get out of bed this treatment PT Short Term Goals Short Term Goals Time Frame: Sep 17, 2017 Transfers (B,C,W/C) (FIM): 2 PT Senior Care Goals Senior Care Goals PT Senior Care Goals Time Frame: Sep 24, 2017 Transfers (B,C,W/C) (FIM): 3 Gait (FIM): 3 Gait distance (FIM): 1=up to 49 ft Distance: 10' Gait Level of Assist: 3 Gait Assistive Device: FWW PT Plan Problem List Problem List: Activity Tolerance, Functional Strength, Safety, Balance, Gait, Transfer, Bed Mobility, ROM Treatment/Plan Treatment Plan: Continue Plan of Care Treatment Plan: Bed Mobility, Education, Functional Activity [place], Functional Strength, Group Therapy, Gait, Safety, Therapeutic Exercise, Transfers Treatment Duration: Sep 24, 2017 Frequency: 6 times per week Estimated Hrs Per Day: .5 hour per day Patient and/or Family Agrees t: Yes Safety Risks/Education Patient Education: Transfer Techniques, Reviewed Precautions, Correct Positioning, Disease Process, Safety Issues Teaching Recipient: Patient, Family Teaching Methods: Demonstration, Discussion Response to Teaching: Reinforcement Needed Time/GCodes Time In: 930 Time Out: 940 Total Billed Treatment Time: 10 Total Billed Treatment 1 visit FA NASIR RIVAS PT Sep 11, 2017 09:48
--- NOTE | 2017-09-11 10:58 | Progress Note (SOAP) ---
Subjective Date Seen by Provider: Sep 11, 2017 Time Seen by Provider: 10:45 Subjective/Events-last exam Pt NIDIA, awake, much more alert this morning, sitting in chair; no overnight events to report, pain controlled, no cp/sob, no complaints. Objective Exam Vital Signs Date Time Temp Pulse Resp B/P (MAP) Pulse Ox O2 Delivery O2 Flow Rate FiO2 09/11/17 08:14 Nasal Cannula 3.00 09/11/17 06:57 Nasal Cannula 2.00 09/11/17 04:00 97.0 77 20 140/73 99 Nasal Cannula 2.00 09/11/17 00:00 97.5 82 18 129/64 97 Nasal Cannula 2.00 09/10/17 20:15 Nasal Cannula 3.00 09/10/17 20:00 98.6 86 20 156/72 95 Nasal Cannula 2.00 09/10/17 16:30 99.0 90 20 156/73 94 Nasal Cannula 3.00 09/10/17 16:00 99.3 90 20 156/73 94 Nasal Cannula 2.00 09/10/17 13:46 98.8 86 20 146/67 93 Nasal Cannula 3.00 09/10/17 13:46 98.8 86 20 146/67 93 Nasal Cannula 3.00 09/10/17 13:31 98.8 81 18 126/56 93 Nasal Cannula 3.00 09/10/17 13:25 98.8 81 20 126/56 93 Nasal Cannula 3.00 09/10/17 12:00 98.9 90 18 109/66 97 Nasal Cannula 2.00 09/10/17 10:54 99.0 80 20 128/63 97 Capillary Refill : Less Than 3 SecondsLess Than 3 Seconds General Appearance: No Apparent Distress HEENT: PERRL/EOMI Neck: Supple Respiratory: No Respiratory Distress Cardiovascular: Regular Rate, Rhythm Peripheral Pulses: 2+ Dorsalis Pedis (R), 2+ Left Dors-Pedis (L) Gastrointestinal: soft Extremity: Other (RLE: expectant post-op edema Right thigh, all compartments soft/compressible/NT, motor/sensation grossly intact, foot well perfused; dressing changed, incisions c/d/i) Neurologic/Psychiatric: Alert, No Motor/Sensory Deficits Results Lab Laboratory Tests 09/11/17 04:57: White Blood Count 7.2, Red Blood Count 3.26L, Hemoglobin 9.9#L, Hematocrit 29L, Mean Corpuscular Volume 88, Mean Corpuscular Hemoglobin 30, Mean Corpuscular Hemoglobin Concent 35, Red Cell Distribution Width 13.6, Platelet Count 161, Mean Platelet Volume 10.3, Sodium Level 139, Potassium Level 3.2L, Chloride Level 109H, Carbon Dioxide Level 19L, Anion Gap 11, Blood Urea Nitrogen 9, Creatinine 0.53L, Estimat Glomerular Filtration Rate > 60, BUN/Creatinine Ratio 17, Glucose Level 117H, Calcium Level 8.0L Microbiology 09/08/17 MRSA Screen - Final, Complete Assessment/Plan Assessment/Plan Assess & Plan/Chief Complaint 82 y/o female s/p IMN Right femur for unstable IT fx, POD 2 Orthopedically stable Continue daily PT/OT for mobilization OOB/ADLs, WBAT RLE Pain control: on IV fentanyl currently, recommend change to PO meds Dressing changes prn Lovenox for VTE prophylaxis for 3 weeks post-op Cont fluids per medicine team, hep lock when po intake adequate Acute post-op blood loss anemia: s/p transfusion 2U prbcs, Hb at 9.9 today, patient currently asymptomatic. D/C planning: pt has bed at SNF for Tuesday, anticipate d/c to SNF on Tuesday; OK to d/c from orthopedic standpoint F/U outpatient in 2 weeks. Instructions given Questions answered. Clinical Quality Measures DVT/VTE Risk/Contraindication: VTE Addressed: Yes VTE Present on Admission: No Risk Factor Score Per Nursin RFS Level Per Nursing on Admit: 4+=Very High SAMANTA CAM DO Sep 11, 2017 10:58
--- NOTE | 2017-09-11 11:03 | Discharge Inst-Surgical ---
Discharge Inst-Surgical Depart Medication/Instructions Patient Instructions May bear weight as tolerated on your Right leg; keep dressings/incisions clean and dry; you may remove your dressings in 2 days and shower; no baths or soaking tubs. Consults/Follow Up Goal/Follow Up Appt.: Please follow-up at [facility] [place] in 2 weeks; please call the office to confirm you appt. Please call with questions/concerns. Activity Activity as Tolerated: Yes Walking Assistive Device: Walker Activity Instructions: Avoid Stress to Incision Driving Instructions: No Driving/Refer to Incentive Spirometry: Every 2 Hours While Awake Diet Discharge Diet: No Restrictions Symptoms to Report to Physicia: Bleeding Excessive, Pain Increased, Fever Over 101 Degrees F Skin/Wound Care Infection Signs and Symptoms: Increased Redness, Foul Odor of Wound, Increased Drainage, Increased Swelling, Temperature Above 101 F Bathing Instructions: Shower Operative Area Clean and Dry: Keep Incision Clean/Dry SAMANTA CAM DO Sep 11, 2017 11:03
[2017-09-11] MEDS ORDERED: ENOX40DI8 SC (11:07)
[2017-09-11] MEDS ORDERED: TRAM50TA2 PO (11:07)
--- NOTE | 2017-09-11 11:52 | Progress Note-Hospitalist ---
Standard Progress Note Progress Notes/Assess & Plan Date Seen 09/11/17 Time Seen by Provider: 11:47 Assess & Plan/Chief Complaint The patient has made some progress. She still is silent. She sat up for a period of time in the chair. The plan for today is to stop the IVs and antibiotic. Pain medicine will be switched to oral. Tomorrow vp digital marketing social media and crm will aid in the process of care home for PT as I expect this process to be prolonged. Her ability to walk was limited prior to the fracture. Physical exam: She tracks with her eyes but does not speak. Lungs are clear to auscultation. CV is regular. The wound over the right hip is clean and dry. Impression: Postop day number 2 internal fixation right intertrochanteric hip fracture. Plan: CALMOSEPTINE cream to the bottom. Stop IV antibiotics and fluids. Switch fentanyl IV to hydrocodone when necessary Labs Laboratory Tests 09/10/17 05:56 09/11/17 04:57 RADHA HALL MD Sep 11, 2017 11:52
[2017-09-11 12:00] VITALS: BP 161/72
[2017-09-11] MEDS: HYDROcodone/APAP 5 MG/325 MG (LORTAB) TAB PO PRN ×2 (12:41→20:24)
[2017-09-11 16:00] VITALS: BP 116/56
[2017-09-11 20:00] VITALS: BP 159/68
[2017-09-11] MEDS: POLYETHYLENE GLYCOL 17 GM (MIRALAX) PACK PO SCH (20:23)
[2017-09-11] MEDS: KCL 20 MEQ TAB (K-DUR) PO SCH (20:24)
[2017-09-11] MEDS: MENTHOL/ZINC OXIDE (CALMOSEPTINE) 113 GM TUBE TOP SCH (20:24)
[2017-09-12 00:35] VITALS: BP 166/75
[2017-09-12] MEDS: HYDROcodone/APAP 5 MG/325 MG (LORTAB) TAB PO PRN ×3 (01:50→10:21)
[2017-09-12 04:41] VITALS: BP 155/69
[2017-09-12] MEDS: LACTOBACILLUS Acidoph/Bulgar (LACTINEX/FLORANEX) TAB PO SCH ×2 (05:59→10:22)
[2017-09-12] MEDS: LEVOTHYROXINE 100 MCG (LEVOTHROID) TAB PO SCH (05:59)
[2017-09-12 06:12] LABS: MEAN PLATELET VOLUME 9.9 FL (7.4-10.4); RED BLOOD COUNT 3.24 10^6/uL (4.35-5.85); RED CELL DISTRIBUTION WIDTH 13.4 % (10.0-14.5); WHITE BLOOD COUNT 6.1 10^3/uL (4.3-11.0)
[2017-09-12 06:30] LABS: ANION GAP 9 MMOL/L (5-14); BLOOD UREA NITROGEN 9 MG/DL (7-18); BUN/CREATININE RATIO 15; CALCIUM 8.5 MG/DL (8.5-10.1); CARBON DIOXIDE 21 MMOL/L (21-32); CHLORIDE 108 MMOL/L (98-107); CREATININE SERUM 0.59 MG/DL (0.60-1.30); GFR ESTIMATED > 60; GLUCOSE 105 MG/DL (70-105); POTASSIUM 3.2 MMOL/L (3.6-5.0); SODIUM 138 MMOL/L (135-145)
[2017-09-12 07:53] VITALS: BP 150/62
[2017-09-12] MEDS: LOSARTAN 50 MG (COZAAR) TAB PO SCH (08:07)
[2017-09-12] MEDS: SERTRALINE 50 MG (ZOLOFT) TABLET PO SCH (08:07)
[2017-09-12] MEDS: FAMOTIDINE 20 MG (PEPCID) TABLET PO SCH (08:07)
[2017-09-12] MEDS: KCL 20 MEQ TAB (K-DUR) PO SCH (08:07)
[2017-09-12] MEDS: DICLOFENAC 1% GEL 100 GM (VOLTAREN) TUBE TOP SCH ×2 (08:23→13:26)
[2017-09-12] MEDS: MENTHOL/ZINC OXIDE (CALMOSEPTINE) 113 GM TUBE TOP SCH (08:23)
[2017-09-12] MEDS ORDERED: INFLUENZA TRIvalent 2017-2018 0.5 ML/45 MCG SYR IM ONE (08:26)
[2017-09-12] MEDS ORDERED: METHYLNALTREXONE 12 MG/0.6 ML (RELISTOR) VIAL SQ NR (08:50)
[2017-09-12] MEDS ORDERED: ENOXAPARIN 40 MG/0.4 ML (LOVENOX) SYR SC SCH (09:00)
[2017-09-12] MEDS ORDERED: ACID1TAB PO (09:07)
[2017-09-12] MEDS ORDERED: MENT71OI TOP (09:07)
[2017-09-12] MEDS ORDERED: POLY17PO23 PO (09:07)
--- NOTE | 2017-09-12 09:10 | Discharge Inst-Skilled Nursing ---
Discharge Inst-Skilled NF Patient Instructions Patient Problems: RIGHT HIP MINIMALLY DISPLACED INTERTROCHANTERIC FRACTURE DEMENTIA HYPOTHYROID HYPERTENSION DEPRESSION ANEMIA Consult/Follow Up/Orders Follow Up Appt.: [address] CAM [address] [facility] Skilled NF Admit to: [facility] Certification (SNF) I certify that SNF services are required to be given on an inpatient basis because of the above named patient's need for [facility] care on a continuing basis for the conditions(s) for which he/she was receiving inpatient hospital services prior to his/her transfer to the SNF. Custodial Facility Order: Nursing Services, Market Research Lead-Evaluate & Treat, Physical Therapy-Evaluate & Treat, Speech Language-Evaluate & Treat Discharge Diet: No Restrictions Daily Activity as Tolerated: Yes New & Resume Previous Orders Bj Rivers Sep 12, 2017 09:08 Pneu Vac Indicated: Yes Medication List: Active Scripts Active Polyethylene Glycol 3350 17 Gm Powd.pack 17 Gm PO HS 30 Days Calmoseptine Ointment (Menthol/Lanolin/Calamine/Znox) 71 Gm Oint 0 Gm TOP BID 30 Days Floranex Tablet (L. Acidophilus/Bulgaricus) 1 Each Tablet 1 Tab.chew PO AC 30 Days Tramadol HCl 50 Mg Tablet 50 Mg PO Q6H Enoxaparin Sodium 40 Mg/0.4 Ml Syringe 30 Mg SC DAILY 20 Days Reported Levothyroxine Sodium 100 Mcg Tablet 100 Mcg PO DAILY Cephalexin 500 Mg Capsule 500 Mg PO TID 7 Days 7 DAY SUPPLY FILLED 09-02-17 Sertraline HCl 25 Mg Tablet 25 Mg PO DAILY Aleve (Naproxen Sodium) 220 Mg Capsule 440 Mg PO DAILY TAKES 2 (220MG) CAPSULES Aspirin EC (Aspirin) 81 Mg Tablet.dr 81 Mg PO DAILY Losartan Potassium 50 Mg Tablet 50 Mg PO DAILY Lab results: Laboratory Tests Test 09/12/17 06:00 Range/Units White Blood Count 6.1 4.3-11.0 10^3/uL Red Blood Count 3.24 L 4.35-5.85 10^6/uL Hemoglobin 9.8 L 11.5-16.0 G/DL Hematocrit 28 L 35-52 % Mean Corpuscular Volume 87 80-99 FL Mean Corpuscular Hemoglobin 30 25-34 PG Mean Corpuscular Hemoglobin Concent 35 32-36 G/DL Red Cell Distribution Width 13.4 10.0-14.5 % Platelet Count 205 130-400 10^3/uL Mean Platelet Volume 9.9 7.4-10.4 FL Sodium Level 138 135-145 MMOL/L Potassium Level 3.2 L 3.6-5.0 MMOL/L Chloride Level 108 H 98-107 MMOL/L Carbon Dioxide Level 21 21-32 MMOL/L Anion Gap 9 5-14 MMOL/L Blood Urea Nitrogen 9 7-18 MG/DL Creatinine 0.59 L 0.60-1.30 MG/DL Estimat Glomerular Filtration Rate > 60 BUN/Creatinine Ratio 15 Glucose Level 105 70-105 MG/DL Calcium Level 8.5 8.5-10.1 MG/DL My orders: Orders - BJ RIVERS MD Patient Visit (09/11/17 ) Functional Activities, Ea 15 (09/11/17 ) Methylnaltrexone Injection (Relistor Inj (09/12/17 08:50) Attending Discharge (09/12/17 09:08) BJ RIVERS MD Sep 12, 2017 09:10
--- NOTE | 2017-09-12 09:15 | Discharge Summary ---
Diagnosis/Chief Complaint Date of Admission Sep 08, 2017 at 07:23 Date of Discharge Discharge Date: Sep 12, 2017 Discharge Time: 1030 Admission Diagnosis Admission Diagnosis RIGHT HIP MINIMALLY DISPLACED INTERTROCHANTERIC FRACTURE DEMENTIA HYPOTHYROID HYPERTENSION DEPRESSION Discharge Diagnosis RIGHT HIP MINIMALLY DISPLACED INTERTROCHANTERIC FRACTURE DEMENTIA HYPOTHYROID HYPERTENSION DEPRESSION ANEMIA Reason Hospital Visit PT IS AN 82 Y/O FEMALE WHO IS A NEW PATIENT TO MY PRACTICE. SHE HAS BEEN SEEN RECENTLY BY THE NURSE PRACTITIONER, TREATED FOR URINARY TRACT INFECTION WITH CLEARING, HOWEVER PT HAS BEEN INCREASINGLY CONFUSED AND FAMILY NOTES SEVERAL FALLS AT HOME RECENTLY. SHE FELL AT HOME TWICE YESTERDAY WITH THE LAST FALL RESULTING IN A RIGHT HIP FRACTURE. PT WAS BROUGHT TO THE HOSPITAL, EMERGENCY PHYSICIAN OBTAINED IMAGING WHICH SHOWED THE FOLLOWIN views of the right hip demonstrate comminuted minimally displaced intertrochanteric fracture of the right hip. There is no dislocation. Discharge Summary Consultations DR. CAM - ORTHOPEDIC SURGEON Discharge Physical Examination Allergies: Coded Allergies: chocolate flavor (Verified Allergy, Unknown, 09/08/17) looses voice Vitals & I&Os Vital Signs Date Time Temp Pulse Resp B/P (MAP) Pulse Ox O2 Delivery O2 Flow Rate FiO2 09/12/17 07:53 98.6 82 20 150/62 96 Nasal Cannula 2.00 General Appearance: Alert, Other (NO ORIENTATION) HEENT: Atraumatic, PERRLA Respiratory: Clear to Auscultation Cardiovascular: Regular Rate Abdominal: Normal Bowel Sounds, Soft Extremities: No Clubbing, No Cyanosis, No Edema Skin: No Breakdown, Other (RIGHT HIP DRESSING IN PLACE C/D/I) Psych/Mental Status: Other (FLAT AFFECT, MINIMAL INTERACTION WITH CONVERSATION , OPENS EYES TO VOICE) Hospital Course RIGHT HIP MINIMALLY DISPLACED INTERTROCHANTERIC FRACTURE DEMENTIA HYPOTHYROID HYPERTENSION DEPRESSION ANEMIA RIGHT HIP MINIMALLY DISPLACED INTERTROCHANTERIC FRACTURE - SURGICAL FIXATION ON 09/09/17 2 views of the right hip demonstrate comminuted minimally displaced intertrochanteric fracture of the right hip. There is no dislocation. DEMENTIA - SUPPORTIVE CARE. HYPOTHYROID - RESUMED HOME MEDICATION HYPERTENSION - RESUMED HOME MEDICATION - [place] - MONITOR BLOOD PRESSURE, ADJUST MEDICATION NEEDED. DEPRESSION - RESTARTED SERTRALINE. ANEMIA - MONITOR LABS IN MORNING - TRANSFUSE IF HGB LESS THAN 7. DVT PROPHYLAXIS WITH FOOT PUMP AND LOVENOX GI PROPHYLAXIS WITH PEPCID DISCUSSED WITH PT AND GRANDDAUGHTER ON 09/08/17 - . MRS. MEJIA WILL NOT BE A GOOD CANDIDATE FOR INPATIENT REHAB IN THE HOSPITAL. I HAVE ADVISED THAT SHE NEEDS TO BE IN THE RESIDENTIAL UPON DISCHARGE FOR PHYSICAL THERAPY ON DISCHARGE. I WOULD ANTICIPATE THAT IF SHE DOES WELL, THE FAMILY NEEDS TO LOOK AT ASSISTED LIVING ON DISCHARGE FROM THE RESIDENTIAL. Pending Labs Laboratory Tests 09/12/17 06:00: White Blood Count 6.1, Red Blood Count 3.24, Hemoglobin 9.8, Hematocrit 28, Mean Corpuscular Volume 87, Mean Corpuscular Hemoglobin 30, Mean Corpuscular Hemoglobin Concent 35, Red Cell Distribution Width 13.4, Platelet Count 205, Mean Platelet Volume 9.9, Sodium Level 138, Potassium Level 3.2, Chloride Level 108, Carbon Dioxide Level 21, Anion Gap 9, Blood Urea Nitrogen 9, Creatinine 0.59, Estimat Glomerular Filtration Rate > 60, BUN/Creatinine Ratio 15, Glucose Level 105, Calcium Level 8.5 Discharge Condition at discharge IMPROVED - STABLE Instructions to patient/family Please see electronic discharge instructions given to patient. Discharge Medications Reviewed and agree with Discharge Medication list on patient's Discharge Instruction sheet Clinical Quality Measures DVT/VTE Risk/Contraindication: VTE Addressed: Yes VTE Present on Admission: No Risk Factor Score Per Nursin RFS Level Per Nursing on Admit: 4+=Very High BJ LOPEZ MD Sep 12, 2017 09:14
--- NOTE | 2017-09-12 09:56 | Physical Therapy Daily Note ---
PT Daily Note-Current Subjective Patient is seated in chair when PT enters the room. Patient is disoriented and struggles to respond with relevant answers to questions or statements from PT. Patient's family member is present and does most responding for the patient. Pain Comment: Patient is unable to respond or explain current pain if she has any Appearance Patient appears in good general health. Patient is left in room with family member in chair. Mental Status Patient Orientation: Confused, Unable to Assess Attachments: SCD's Transfers Functional [place] Measure 0=Not Assessed/NA 4=Minimal Assistance 1=Total Assistance 5=Supervision or Setup 2=Maximal Assistance 6=Modified [place] 3=Moderate Assistance 7=Complete IndependenceIRFPAI Quality Coding Scale 6 Independent with activity with or without an assistive device 5 Patient requires set up or clean up by helper. Patient completes activity by themselves 4 Supervision or touching assist (CGA). Daisy provide cues , steadying assist 3 The helper provides less than half the effort to complete the activity 2 The helper provides more than half the effort to complete the activity 1 Dependent. The helper does all the effort to complete an activity 7 Patient refused to complete or attempt activity 9 The patient did not perform the activity before the current illness or injury 88 Not attempted due to Medical conditions or safety concerns Transfers (B, C, W/C) (FIM): 2 Sit to/from Stand: 2 Patient rises from sit to stand with max assist x 2 PTs. Patient struggles to coordinate movement on her own and motivation is low. Weight Bearing Right Lower Extremity: Right Weight Bearing/Tolerated Left Lower Extremity: Left Full Weight Bearing Gait Training Gait (FIM): 1 Distance (FIM): 1=up to 49 ft Distance: 5' Gait Level of Assist: 1 Gait Persons Needed: 2 Gait Assistive Device: FWW Patient stands in FWW and ambulates with two therapist assistance. Patient is weight shifted and L LE needs to be advanced by therapist. Patient is disoriented and does not wish to perform anymore walking. Exercises Seated Therapy Exercises: Long arc quads (mostly PROM by therapist; unable to assess whether patient is unable to perform motion or is misunderstanding of what is being asked), Hip flexion (PROM by PT) Seated Reps: 25 Assessment Current Status: Fair Progress Patient is limited in ability to progress by cognitive limitations as well as an apparent lack of motivation towards ambulation. PT is informed that patient is being transferred to another location on this date. PT Short Term Goals Short Term Goals Time Frame: Sep 17, 2017 Transfers (B,C,W/C) (FIM): 2 PT Half-Way Goals Air Duct Mechanic Goals PT Half-Way Goals Time Frame: Sep 24, 2017 Transfers (B,C,W/C) (FIM): 3 Gait (FIM): 3 Gait distance (FIM): 1=up to 49 ft Distance: 10' Gait Level of Assist: 3 Gait Assistive Device: FWW PT Plan Problem List Problem List: Activity Tolerance, Functional Strength, Safety, Balance, Gait, Transfer, Bed Mobility, ROM Treatment/Plan Treatment Plan: Discontinue PT Treatment Plan: Bed Mobility, Education, Functional Activity [place], Functional Strength, Group Therapy, Gait, Safety, Therapeutic Exercise, Transfers Discontinue PT due to patient being transferred out of hospital on this date Treatment Duration: Sep 24, 2017 Frequency: 6 times per week Estimated Hrs Per Day: .5 hour per day Patient and/or Family Agrees t: Yes Safety Risks/Education Patient Education: Gait Training, Reviewed Precautions, Safety Issues Teaching Recipient: Patient, Family Teaching Methods: Demonstration, Discussion Response to Teaching: Unable to Return Demonstration, Unable to Comprehend, Reinforcement Needed Discharge Recommendations Therapy D/C Recommendations: [facility] Placement, [facility] ([facility]) Equpiment Recommendations-D/C: Front Wheeled Walker Time/GCodes Time In: 922 Time Out: 945 Total Billed Treatment Time: 23 Total Billed Treatment 1 visit EX 10 min GT 13 min DARRYL JONES PT Sep 12, 2017 09:55
[2017-09-12 14:00] VITALS: BP 148/62
== END 2017-09-12 14:00 | DRG 481 ==
LOC: EDUNIT# 05:07 → ER 05:09 → 4TH 07:23
PROVIDERS: ADMIT Family Medicine; ATTEND Family Medicine
PROC: 0QS636Z Reposition Right Upper Femur with Intramedullary Internal Fixation Device, Percutaneous Approach (ICD-10-PCS; principal; 2017-09-09 07:30)
DX: S72.141A Displaced intertrochanteric fracture of right femur, initial encounter for closed fracture (principal); N39.0 Urinary tract infection, site not specified; E03.9 Hypothyroidism, unspecified; D62 Acute posthemorrhagic anemia; F03.90 Unspecified dementia, unspecified severity, without behavioral disturbance, psychotic disturbance, mood disturbance, and anxiety; I10 Essential (primary) hypertension; F32.9 Major depressive disorder, single episode, unspecified; Z66 Do not resuscitate; W19.XXXA Unspecified fall, initial encounter; Y92.009 Unspecified place in unspecified non-institutional (private) residence as the place of occurrence of the external cause; Z85.038 Personal history of other malignant neoplasm of large intestine; Z87.440 Personal history of urinary (tract) infections; Z93.3 Colostomy status; Z23 Encounter for immunization
CPT/HCPCS: 36415; 70450; 71010; 72125; 73502; 80048; 80053; 81000; 83735; 83880; 85007; 85025; 85027; 86850; 86900; 86901; 86920; 87081; 93005; 94664; 96361; 96374; 96375